=== PATIENT | female | born 1940 | race Caucasian/White ===

== ENCOUNTER 2023-02-15 07:30 | Outpatient (RCR) | payer MEDICARE, SELFPAY | END 2023-06-15 23:59 | disposition home or self-care (01) | PROVIDERS: PCP Family Medicine; Visit Provider Family Medicine | DX: N39.3 Stress incontinence (female) (male) (principal); M99.05 Segmental and somatic dysfunction of pelvic region; R29.898 Other symptoms and signs involving the musculoskeletal system; Z51.89 Encounter for other specified aftercare | CPT/HCPCS: 97110; 97140; 97162 ==

== ENCOUNTER 2023-03-19 07:01 | Outpatient (CLI) | payer MEDICARE, SELFPAY ==
--- NOTE | 2023-03-19 08:29 | W.ANESCHARGE ---
Anesthesia Charges Start Date/Time Anesthesia Start Date: 03/19/23 Anesthesia Start Time: 08:00 Stop Date/Time Anesthesia Stop Date: 03/19/23 Anesthesia Stop Time: 08:26
--- NOTE | 2023-03-19 08:35 | W.ANESCHARGE ---
Anesthesia Charges Start Date/Time Anesthesia Start Date: 03/19/23 Anesthesia Start Time: 08:00 Stop Date/Time Anesthesia Stop Date: 03/19/23 Anesthesia Stop Time: 08:26 Summary Extremes of Age - Over 70 or under 1: MDA
== END 2023-03-19 07:02 | disposition home or self-care (01) ==
PROVIDERS: PCP Family Medicine; Visit Provider Internal Medicine Gastroenterology
DX: Z12.11 Encounter for screening for malignant neoplasm of colon (principal); Z86.010 Personal history of colon polyps
CPT/HCPCS: 00811; 00812; 45378; 99100; J2704

== ENCOUNTER 2024-03-24 17:13 | Emergency (ER) | payer MEDICARE, SELFPAY ==
--- OUTSIDE RECORDS SUMMARY | 2024-03-24 17:16 | XMS_ITS | Clinical Summary ---
Author Organization [facility] Address [place], [place] [address] Care Team Providers Care Wireless Cellular Technician Name Role Phone Sukumar Fenrandez Shyam Unavailable [phone] Corina Rangel MD Primary Care Provider Allergies Active Allergy Reactions Criticality Noted Date Comments Latex Rash 04/19/2016 Patient had a rib belt/binder and got a severe rash. Unsure if latex or the elastic in the belt. Nickel Rash 10/11/2015 Medications calcium with vitamin D3 (OYSCO 500/D) tablet Take 1 tablet by mouth 3 times daily with meals. 0 0 Active alendronate (FOSAMAX) 70 mg tabletIndications :Osteoporosis, unspecified osteoporosis type, unspecified pathological fracture presence Take 1 Tablet (70 mg) by mouth once a week in the morning. Take on empty stomach with full glass of water. Do not lie down for 1 hr. 13 Tablet 3 4 Active levothyroxine (SYNTHROID) 75 mcg tabletIndications :Hypothyroidism, unspecified type Take 1 Tablet (75 mcg) by mouth once daily. 90 Tablet 3 4 Active Active Problems Problem Noted Date Diagnosed Date Stage 3a chronic kidney disease 03/06/2023 Adenomatous colon polyp 11/23/2017 Overview (03/19/2023): Colonoscopy 08/2017 polyp, repeat in 5 years Colonoscopy 02/2023 normal, no follow up needed Closed nondisplaced fracture of distal phalanx of right middle finger with routine healing 01/17/2016 Routine adult health maintenance 10/31/2013 Overview (10/31/2013): Colonoscopy 10/2013 normal, no follow up needed Osteopenia 08/25/2009 Overview (06/10/2012): 09/06 - Recheck in 2 years Unspecified hypothyroidism 07/26/2007 Encounters Date Type Department Care Team Description 02/28/2024 2:30 PM SECURITIES RESEARCH ANALYST Office Visit [facility] [address] [place] [address] Emperatriz Ayala, [facility] Visit 02/28/2024 Travel 02/25/2024 Travel 02/05/2024 8:30 AM SECURITIES RESEARCH ANALYST Ancillary Procedure [facility] [address] [place] [address] 02/05/2024 Travel 02/01/2024 Travel 01/30/2024 10:00 AM SECURITIES RESEARCH ANALYST Office Visit [facility] [address] [place] [address] Barry Mckeon DPM Consult (Bilateral foot pain) 01/30/2024 Travel 01/26/2024 Travel 12/31/2023 1:00 PM SECURITIES RESEARCH ANALYST Ancillary Procedure [facility] [address] [place] [address] 12/31/2023 Travel 12/27/2023 8:00 AM CDT Office Visit [facility] [address] [place] [address] Corina Rangel MD Medicare ANNUAL (subsequent) Visit (83 yr/); Immunization/Inject ion 12/27/2023 Travel 12/25/2023 12:20 PM CDT Orders Only [facility] [address] [place] [address] [facility], [facility] 12/25/2023 Travel 12/23/2023 Travel from Last 3 Months Immunizations Name Administration Dates Next Due Amb Influenza, Inact (High-d ose) (Flu Clinic Only) 11/13/2014 COVID-19 VACCINE SPIKEVAX (M ODERNA 50MCG/0.5ML) 12YO+ PFS 12/27/2023,12/25/2022 COVID-19 vaccine (Moderna 50mcg/0.5mL) 12YO+ BIVALENT PF, MDV 07/19/2022 COVID-19 vaccine (Pfizer-Bio NTech 30mcg/0.3mL) 12YO+ BIVALENT PF, MDV 12/22/2021 Hepatitis A (Adult) 08/25/2009,10/30/2007 Influenza A (H1N1), Inactiva edison (Age >=3 Years) 03/09/2009 Influenza, High-dose Inactivated 12/27/2015 Influenza, IIV3 (Age >=3 years) 11/14/19 14,12/25/2012,11/16/2010,2009,03/09/2009,12/23/2007,01/23/2007 Influenza, Inactivated AIIV4 (Age 65+ Years) Preserv Free 12/25/2022,12/22/2021,12/20/2020,2019 Influenza, Inactivated IIV3 (Age 65+ Years) Preserv Free 12/27/2023,12/17/2018,10/30/2017,2016 Pneumococcal Poly,23-Valent (Pneumovax) 07/09/2006 Pneumococcal conj 13-Valent (Prevnar 13) 10/09/2014 Td (Age >=7 Years) 07/02/2001 Tdap 01/05/2021,08/26/2010 Typhoid (injectable) 02/04/2015,10/30/2007 Yellow Fever 10/30/2007 Zoster (Shingrix-RZV, recombinant) 02/27/2018, Zoster (Zostavax-ZVL, live) 07/26/2007, 7 Family History Medical History Relation Name Comments Heart Disease Father dx in early 80 's, age 88 [place] Cancer-colon Mother age 75, d at 89 Cancer Sister 1 melanoma, age 4 1 Diabetes Sister 2 type II Diabetes Sister 3 type II Cancer-breast No Family History Cancer-ovarian No Family History Relation Name Status Comments Father Mother Sister 1 Sister 2 Sister 3 Social History Tobacco Use Types Packs/Day Years Used Date Smoking Tobacco: Former Cigarettes Q uit: 02/26/1998 Smokeless Tobacco: Never Tobacco Cessation:Counseling Given: Yes Alcohol Use Standard Drinks/Week Comments Yes 0.8 (1 standard drink = 0.6 oz p ure alcohol) occasional C Utilities Answer Date Recorded Do you have trouble paying f or utilities (for example, heat, electricity, water, phone)? Yes 03/06/2023 PHQ-2 Answer Date Recorded PHQ-2 TOTAL SCORE 0 12/27/2023 Social Connections Answer Date Recorded Do you often feel lonely or isolated from those around you? 0 03/06/2023 Financial Resource Strain Answer Date R ecorded Difficulty of Paying Living Expenses 3 03/06/2023 Difficulty of Paying Living Expenses Not on file 03/06/2023 Food Insecurity Answer Date Recorded Do you worry your food will run out before you are able to buy more? 1 03/06/2023 Transportation Needs Answer Date Record ed Does lack of transportation keep you from medica l appointments? 1 03/06/2023 Does lack of transportation keep you from work, meetings or getting things that you need? 1 03/06/2023 Housing Stability Answer Date Recorded What is your housing situation today? 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 Not on file Not on file Obstetrics History Para Term AB IAB SAB Ectopic Multiple Livin g Live Births 4 3 3 Date Outcome GA Total Labor Labor/2nd/3rd Weight Sex Type Anes PTL Digna A1 A5 Name Clin Para Para Para Comments all vaginal deliveries Last Filed Vital Signs Vital Sign Reading Time Taken Comments Blood Pressure 134/81 12/27/2023 7:56 AM CDT Pulse 75 01/30/2024 9:59 AM SECURITIES RESEARCH ANALYST Temperature 36.8 C (98.2 F) 05/17/2020 1:40 PM CDT Respiratory Rate 18 03/09/2022 1:02 PM SECURITIES RESEARCH ANALYST Oxygen Saturation 98% 01/30/2024 9:59 AM SECURITIES RESEARCH ANALYST Inhaled Oxygen Concentration - - Weight 48.5 kg (107 lb) 01/30/2024 9:59 AM SECURITIES RESEARCH ANALYST Height 167 cm (5' 5.75) 12/27/2023 7:56 AM CDT Body Mass Index 17.4 12/27/2023 7:56 AM CDT Plan of Treatment Upcoming Encounters Date Type Department Care Team (Late st Contact Info) Description 04/21/2024 2:30 PM SECURITIES RESEARCH ANALYST Office Visit [facility] [address] [place] [id number] Terra Lange, PhD, LP [address] [place] [address] Health Maintenance Due Date Last Done Comments RSV vaccine for adults or (1 - 1-dose 75+ series) 09/27/2015 BMI (ht and wt on same day) for age 18+ 12/26/2024 12/27/2023, 03/06/2023, 12/25/2022, Additional history exists Depression screening for age 12+ 12/26/2024 12/27/2023, 12/25/2022, 12/22/2021, Additional history exists Medicare Wellness for age 65+ 12/27/2024, 12/25/2022, 12/22/2021, Additional history exists Tetanus booster 01/05/2031 01/05/2021, 07/0 02/2010, 07/02/2001 Pneumococcal series for age 50+ Completed 5, 07/09/2006 Zoster (shingles) series for age 50+ Completed 02/27/2018, 10/30/2017, 07/26/2007, Additional history exists Tdap Completed 01/05/2021, 08/26/2010 COVID-19 vaccine series Completed 12/27/19 24, 12/25/2022, 07/19/2022, Additional history exists Influenza for age 65+ Completed 12/27/2023 , 12/25/2022, 12/22/2021, Additional history exists DEXA/DXA scan for age 65+ Completed 2023, 01/30/2022, 01/26/2020, Additional history exists Procedures Procedure Name Priority Date/Time Associated Diagnosis Comments XR DXA BONE DENSITY 2 SITES AXIAL AND 1 SITE PERIPHERAL Routine 02/05/2024 9:01 AM SECURITIES RESEARCH ANALYST Menopause XR CHEST 2 VIEWS PA AND LATERAL Routine 12/31/2023 1:05 PM SECURITIES RESEARCH ANALYST Intermittent right-sided chest pain TSH Routine 12/25/2023 12:37 PM CDT Hypothyroidism, unspecified type LIPID PANEL W REFLEX MEASURED LDL Routine 12/25/2023 12:37 PM CDT Lipid screening BASIC METABOLIC PANEL Routine 12/25/2023 12:37 PM CDT Screening for diabetes mellitus (DM) from Last 3 Months Results * (ABNORMAL) XR DXA BONE DENSITY 2 SITES AXIAL AND 1 SITE PERIPHERAL (02/05/2024 9:01 AM SECURITIES RESEARCH ANALYST) Anatomical Region Laterality Modality LUMBAR SPINE Other Impressions 02/06/2024 11:21 AM SECURITIES RESEARCH ANALYST Osteoporosis. Due to the stability of the bone density, continue present medication if indicated. RECOMMENDATIONS: The National Osteoporosis Foundation recommends pharmacologic treatment for patients with T-scores of -2.5 or less, patients with prior history of fragility fractures, or patients with 10-year probability of greater than 3% at hips or greater than 20% of suffering major osteoporotic fractures. Recommend continued optimization of calcium and vitamin D intake through dietary means and/or supplementation and regular exercise. Continue current Alendronate (Fosamax) medication treatment. Repeat DXA in two years. Consider a drug holiday from bisphosphonates if indicated. Hyacinth Mcdaniels PA-C [facility] 02/06/2024 Narrative 02/06/2024 11:21 AM SECURITIES RESEARCH ANALYST For Patients: Results are automatically released to your [employer] account once available, in compliance with federal regulations. This means that you may see your results before your provider has had a chance to review them. Please allow 2-3 business days for your provider to comment on the results. XR DXA Bone Mineral Density (BMD) EXAM LOCATION: [facility] [address] [facility] [id number] PATIENT NAME: Angela Zapata DATE OF : 1940 EXAM DATE: 02/05/2024 REQUESTING PROVIDER: Corina Rangel MD GENDER AT : female HEIGHT: 5' 5.75 (12/27/2023) WEIGHT: 107 lb (01/30/2024) MENOPAUSAL STATUS: Postmenopausal RACE/ETHNICITY: White RISK FACTORS: Family History of Osteoporosis, Family History of Hip Fracture (parental), History of Fragility Fracture (at a major site), Smoking (prior), Weight < 127 lbs., and White Race CURRENT MEDICATION FOR BONE LOSS: Alendronate (Fosamax) INDICATION: Menopause COMPARISON DATE(S): 2021 DXA scans are compared to prior studies for a patient only when the two (or more) studies were performed on the same scanner. It is not possible to compare data generated on one scanner to data from another because there are not standards in DXA equipment. This applies even if the two scanners are made by the same casino runner. PROCEDURE: Dual-energy x-ray absorptiometry performed with routine technique. Reporting is completed in the form of a T-score. The T-score represents the standard deviation from peak bone mass based on young healthy adult. A Z-score is used for diagnosis in premenopausal women, and for men under the age of 50. FINDINGS: RESULT LUMBAR SPINE L1 - L2 BMD: 0.807 g/cm2 T-Score: - 3.0 Z-Score: - 0.5 Change from prior in 2021: Decrease 11.1%. RESULTS FEMUR Right femoral neck BMD: 0.675 g/cm2 T-Score: - 2.6 Z-Score: + 0.0 Change from prior in 2021: Increase 1.7%. Right hip BMD: 0.728 g/cm2 T-Score: - 2.2 Z-Score: + 0.4 Change from prior in 2021: Increase 3.1%. RESULT FOREARM Left Forearm distal radius BMD: 0.737 g/cm2 T-Score: - 5.0 Z-Score: - 2.0 Change from prior: None WHO criteria: Normal: T-score at or above -1 SD Osteopenia: T-score between -1.1 and -2.4 SD Osteoporosis: T-score at or below -2.5 SD us Corina Rangel MD DEXA Final R esult * XR CHEST 2 VIEWS PA AND LATERAL (12/31/2023 1:05 PM SECURITIES RESEARCH ANALYST) Anatomical Region Laterality Modality CHEST, THORAX, Lung, HEART Compu edison Radiography 12/31/2023 6:09 PM SECURITIES RESEARCH ANALYST Impressions 12/31/2023 6:09 PM SECURITIES RESEARCH ANALYST 1. Bilateral pulmonary hyperinflation and lucency is noted. This is suggestive of severe, stable pulmonary emphysema. Dictated by Boubacar Albrecht MD @ 12/31/2023 6:09:34 PM Dictated by: Boubacar Albrecht MD @ 12/31/2023 18:09:39 (Electronically Signed) Narrative 12/31/2023 6:09 PM SECURITIES RESEARCH ANALYST For Patients: As a result of the Cures Act, medical imaging exams and procedure reports are released immediately into your electronic medical record. You may view this report before your referring provider. If you have questions, please contact your health care provider. INDICATION: Intermittent right-sided chest pain TECHNIQUE: Chest radiograph 2 views COMPARISON: 12/25/2022 FINDINGS: Mediastinum: The mediastinum is normal in appearance. The heart silhouette is normal in size and morphology. Lung: There is a 7 mm calcified granuloma present in the left mid lung zone without change. Bilateral pulmonary hyperinflation and lucency is noted. No sign of pleural effusion seen. No pneumothorax is identified. Bone and Soft tissue: Unremarkable for age. Procedure Note Boubacar Albrecht MD - 12/31/2023 For Patients: As a result of the Cures Act, medical imagingexams and procedure reports are released immediately into your electronicmedical record. You may view this report before your referring provider.If you have questions, please contact your health care provider. INDICATION: Intermittent right-sided chest pain TECHNIQUE: Chest radiograph 2 views COMPARISON: 12/25/2022 FINDINGS: Mediastinum: The mediastinum is normal in appearance. The heart silhouetteis normal in size and morphology. Lung: There is a 7 mm calcified granuloma present in the left mid lungzone without change. Bilateral pulmonary hyperinflation and lucency isnoted. No sign of pleural effusion seen. No pneumothorax is identified. Bone and Soft tissue: Unremarkable for age. IMPRESSION: 1. Bilateral pulmonary hyperinflation and lucency is noted. This issuggestive of severe, stable pulmonary emphysema. Dictated by Boubacar Albrecht MD @ 12/31/2023 6:09:34 PM Dictated by: Boubacar Albrecht MD @ 12/31/2023 18:09:39 (Electronically Signed) Corina Rangel MD GENERAL IMAGING Final R esult * LIPID PANEL W REFLEX MEASURED LDL (12/25/2023 12:37 PM CDT) CHOLESTEROL, TOTAL 146 <200 mg/dL [facility] HDL CHOLESTEROL 67 > OR = 50 mg/dL [facility] TRIGLYCERIDES 51 <150 mg/dL [facility] LDL-CHOLESTEROL 66 mg/dL (calc) [facility] Comment: Reference range: <100 Desirable range <100 mg/dL for primary prevention; <70 mg/dL for patients with CHD or diabetic patients with > or = 2 CHD risk factors. LDL-C is now calculated using the Herbert-Daiz calculation, which is a validated novel method providing better accuracy than the Friedewald equation in the estimation of LDL-C. Herbert SS et al. KUN. 2013;310(19): 6457-5145 (http://education.[employer]/faq/QMR860) CHOL/HDLC RATIO 2.2 <5.0 (calc) [facility] NON HDL CHOLESTEROL 79 <130 mg/dL (calc) [facility] Comment: For patients with diabetes plus 1 major ASCVD risk factor, treating to a non-HDL-C goal of <100 mg/dL (LDL-C of <70 mg/dL) is considered a therapeutic option. Blood BLOOD SPECIMEN / Unknown 12/25/2023 12:37 PM CDT 12/25/2023 12:37 PM CDT Narrative [facility] - 12/26/2023 2:42 AM CDT FASTING:NO FASTING: NO Corina Rangel MD CHEMISTRY Final R esult [facility] [address] [place] [address], [facility] [address] [place] [address] * TSH (12/25/2023 12:37 PM CDT) [facility] TSH 0.49 0.40 - 4.50 mIU/L [facility] Blood BLOOD SPECIMEN / Unknown 12/25/2023 12:37 PM CDT 12/25/2023 12:37 PM CDT Narrative [facility] - 12/26/2023 3:14 AM CDT FASTING:NO FASTING: NO Corina Rangel MD CHEMISTRY Final R esult [address] [address], [address] [address] * (ABNORMAL) BASIC METABOLIC PANEL (12/25/2023 12:37 PM CDT) [facility] GLUCOSE 92 65 - 139 mg/dL [facility] Comment: Non-fasting reference interval UREA NITROGEN (BUN) 17 7 - 25 mg/dL [facility] CREATININE 0.82 0.60 - 0.95 mg/dL [facility] EGFR 71 > OR = 60 mL/min/1. 73m2 [facility] BUN/CREATININE RATIO SEE NOTE: 6 - 22 (calc) [facility] Comment: Not Reported: BUN and Creatinine are within reference range. SODIUM 134(L) 135 - 146 mmol/L [facility] POTASSIUM 4.4 3.5 - 5.3 mmol/L [facility] CHLORIDE 101 98 - 110 mmol/L [facility] CARBON DIOXIDE 24 20 - 32 mmol/L [facility] ELECTROLYTE BALANCE 9 7 - 17 mmol/L (calc) [facility] CALCIUM 8.9 8.6 - 10.4 mg/dL [facility] Blood BLOOD SPECIMEN / Unknown 12/25/2023 12:37 PM CDT 12/25/2023 12:37 PM CDT Narrative [facility] - 12/26/2023 2:42 AM CDT FASTING:NO FASTING: NO Corina Rangel MD CHEMISTRY Final R esult [facility] [address] [place] [address], [facility] [address] [place] [address] from Last 3 Months Insurance MEDICARE PB ONLY [facility] PB ONLY Advance Directives Documents on File Type Date Recorded 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
[2024-03-24 17:19] VITALS: BP 136/84; PULSE 51; RESP 18; TEMP 36.3; O2SAT 99; BMI 17.8
--- NOTE | 2024-03-24 17:31 | ED.FALL ---
HPI - Fall General Time Seen by Provider: 17:31 Date Seen: 03/24/24 Chief Complaint: Fall/Minor Trauma Stated Complaint: Fell on the sidewalk, thinks she broke her wrist. Time Seen by Provider: 03/24/24 17:31 Source: patient, family and RN notes reviewed Mode of arrival: ambulatory Limitations: no limitations History of Present Illness HPI Narrative: Angela is a very pleasant 83-year-old female with history of osteo P knee a or processes says she is currently alendronate, hypothyroidism currently on Synthroid who comes to the emergency room for evaluation of bilateral wrist and nasal trauma after a fall. Angela notes that she is a rather fast walker and was on an unfamiliar sidewalk which must have had some sort of lip. She states her foot caught and she went forward. She stopped her fall with both of her arms but her nose did hit the sidewalk. She stated that she had a very good had on and did not sustain any head trauma. Denies any loss of consciousness or neck pain at this time. Denies any prodromal symptoms. She notes that her wrist hurt and seemed to have swelling and she is worried that she has actually broken both wrists. Previous history of right wrist and hand injury. She can move all her fingers and she has no pain in her elbows or shoulders. She denies any chest pain or vomiting. Movement greatly increases her discomfort especially in her right wrist. There is some blood on her left hand which she states is likely from her nose. Related Data Home Medications ?Medication ?Instructions ?Recorded ?Confirmed alendronate 70 mg tablet (Fosamax) 70 mg PO QWEEK 06/15/22 03/24/24 levothyroxine 75 mcg tablet mcg PO 06/15/22 01/15/23 calcium carbonate (Calcium 600) 600 mg PO QDAY 01/15/23 03/24/24 cholecalciferol (vitamin D3) 10 10 mcg PO QDAY 01/15/23 03/24/24 mcg (400 unit) capsule Allergies Allergy/AdvReac Type Severity Reaction Status Date / Time Latex, Natural Rubber Allergy Unknown Verified 03/24/24 17:24 Sulfa (Sulfonamide Allergy Unknown Verified 03/24/24 17:24 Antibiotics) Review of Systems Status of ROS: Reports: 10 or more systems reviewed and unremarkable except as noted in History and below Const: Denies: fever or chills Eyes: Denies: change in vision or blurry vision ENMT: Denies: throat pain or neck pain Cardio: Denies: chest pain or shortness of breath with exertion Resp: Denies: shortness of breath or cough GI: Denies: abdominal pain, nausea or vomiting Musculo: Reports: extremity swelling; Denies: back pain, neck pain or extremity pain Integ/Breast: Denies: rash Neuro: Denies: headache PFSH PFSH Social History Smoking Status: Never smoker How often do you have a drink containing alcohol: never AUDIT-C Alcohol total score: 0 Non-prescribed substance use: denies use Exam Narrative: Exam Narrative: Angela is alert and oriented. Very pleasant woman in no acute distress. EOM is full with pupils equal reactive. Head is atraumatic with the exception of the nose. Neck is supple. No midline cervical tenderness and range of motion is full. Examination of the nose shows no evidence of a septal hematoma but does show some dried blood at the left nostril. She has swelling of the mid and distal aspect of the nose. No obvious lacerations. Heart with regular rate and rhythm and lungs are clear bilaterally. Abdomen soft. Pelvis is stable. She has some mild tenderness noted over the left knee but she is able to move her lower extremities without difficulty. Examination however room wrist shows swelling bilaterally and I do sense a deformity especially at the distal aspect of the radius. On the right wrist swelling seems to be actually in the carpal elements distal to the radial bone. She is able to move fingers on both hands without difficulty. On the left arm she has tenderness over the mid aspect of the forearm. No pain with palpation over the elbows or shoulders. Const: Vital Signs, click to edit/add: Vital Signs - 24 hr 03/24/24 17:19 Temperature 97.4 F L Pulse Rate [Pulse Oximeter] 51 L Respiratory Rate 18 Blood Pressure [Ri ght Upper Arm] 136/84 Pulse Oximetry 99 Oxygen Delivery Me thod Room Air Documenting provider has reviewed patient's vital signs: yes Course Course ED Course: At this time will order x-rays of left wrist and forearm, right wrist and CT of the nose. Have offered pain medication to Angela and discussed oral versus IM and narcotic verses nonnarcotic. At this time we will try morphine 8 mg IM. Also discussed with Angela and her significant other challenges of being cared for at home if she has splints on both of her wrists. Reevaluation(s) Reevaluation #1: Patient noted to be improved after IM morphine. Splints were placed on patient risk. Wrist fracture is nondisplaced and not angulated or comminuted. Patient had a volar splint placed with improvement of her discomfort. Post splint application good CMS. Right wrist was splinted with a dorsal volar splint given the nature of the fracture which is comminuted with dorsal angulation. CMS intact after splint placement. Consultations Consultation #1: I had the pleasure of speaking with ortho PA Ginna in regards to this patient. She does not feel we need to do a reduction on the right wrist tonight. Recommend follow-up in the clinic. Vital Signs Vital signs: Initial Vital Signs Temperature 97.4 F L 03/24/24 17:19 Temperature Source Temporal Artery Scan 03/24/24 17:19 Pulse Rate 51 L 03/24/24 17:19 Respiratory Rate 18 03/24/24 17:19 Blood Pressure 136/84 03/24/24 17:19 Blood Pressure Mean 101 03/24/24 17:19 Blood Pressure Position Sitting 03/24/24 17:19 Pulse Oximetry 99 03/24/24 17:19 Oxygen Delivery Method Room Air 03/24/24 17:19 Vital Signs Temperature 97.4 F L 03/24/24 17:19 Pulse Rate 51 L 03/24/24 17:19 Respiratory Rate 18 03/24/24 17:19 Blood Pressure 136/84 03/24/24 17:19 Pulse Oximetry 99 03/24/24 17:19 Oxygen Delivery Method Room Air 03/24/24 17:19 Temperature 97.4 F L 03/24/24 17:19 Pulse Rate 51 L 03/24/24 17:19 Respiratory Rate 18 03/24/24 17:19 Blood Pressure 136/84 03/24/24 17:19 Pulse Oximetry 99 03/24/24 17:19 Oxygen Delivery Method Room Air 03/24/24 17:19 Medications Administered Medications: Discontinued Medications Generic Name Dose Route Start Last Admin Trade Name Freq PRN Reason Stop Dose Admin Morphine Sulfate 8 mg 03/24/24 17:45 03/24/24 18:14 Morphine 10 Mg/Ml Inj IM 03/24/24 17:46 8 mg ONCE ONE Administration MDM - Fall MDM Narrative Medical decision making narrative: 1. Bilateral wrist fractures -left wrist likely will only require splint or possibly short-arm cast. Right wrist fracture is a possibly a surgical candidate. Did speak with Orthopedics PA does not feel I need to do a reduction tonight. Patient was placed in bilateral splints and will follow up with Orthopedic and fracture Clinic in the next few days. Patient received IM morphine in the ED and was improved. Will send her home with Vicodin, 5/325 1-2 tabs p.o. q.4-6 hours p.r.n. 12. Tablets with no refills. She does not have any ibuprofen with her at home tonight but would recommend ibuprofen 400 mg t.i.d.. Although I do not think this will relieve her discomfort it may allow her to take less Vicodin less often overall. We spoke of he is the importance of a stool softener if she is at risk for constipation. 2. Nasal trauma-recheck at the end of exam continues to show no evidence of a septal hematoma. Reassurance at this time. Tetanus is up-to-date. 3. Disposition -home. Taty Siu's feels that he will be able to care for her. Return as needed for worsening symptoms and as needed. Medical Records Attestation: I reviewed the patient's medical records. Imaging Data Left wrist x-ray: Attestation: I have reviewed the pertinent imaging results. My impression: Fracture of the distal radius with out any evidence of displacement. Radiologist's impression: Bone: Focal buckling of the cortex along the radial styloid is noted with adjacent soft tissue swelling. Moderate diffuse osteopenia is present. Joint: The radiocarpal, carpal, and carpometacarpal joints are unremarkable in appearance. Soft tissue: Unremarkable otherwise. No radiopaque foreign bodies are seen. IMPRESSION: 1. Focal buckling of the cortex along the radial styloid is noted with adjacent soft tissue swelling. Correlation with physical exam for focal tenderness in this region is recommended to exclude an acute fracture. Left forearm x-ray: Attestation: I have reviewed the pertinent imaging results. My impression: No fracture Radiologist's impression: No fracture Right wrist x-ray: Attestation: I have reviewed the pertinent imaging results. My impression: Obvious fracture of the distal radius. Comminuted. Radiologist's impression: Bone: There is a comminuted intra-articular fracture of the distal radius present with dorsal angulation of the articular surface by 20 degrees. Positive ulnar variance of 6 mm is noted likely post traumatic in etiology. Moderate diffuse osteopenia is present. Joint: The radiocarpal, carpal, and carpometacarpal joints are unremarkable in appearance. Soft tissue: Overlying fabric artifacts moderately degrade the evaluation of the soft tissues and osseous structures. No radiopaque foreign bodies are seen. IMPRESSION: 1. There is a comminuted intra-articular fracture of the distal radius present with dorsal angulation of the articular surface by [address]: Attestation: I have reviewed the pertinent imaging results. My impression: I note a deviated nasal septum. Questionable fracture. Sinuses appear to be intact. Radiologist's impression: Streak artifact from the dental hardware limits evaluation of adjacent structures. The orbital franklin are intact. The globes are symmetric in size and normal in contour. There is no retrobulbar hematoma. Status post lens removal bilaterally. Acute mildly displaced fracture of the left nasal bone with overlying soft tissue edema. The zygomatic arches are intact. The franklin of the maxillary sinuses are intact. The paranasal sinuses and mastoid air cells are clear. The pterygoid plates are intact. The nasopharyngeal contours are unremarkable. The mandible and temporomandibular joints are intact. IMPRESSION: Acute mildly displaced left nasal bone fracture. Discharge Plan Discharge Clinical Impression: Closed fracture of both wrists Qualifiers: Encounter type: initial encounter Qualified Code(s): S62.101A - Fracture of unspecified carpal bone, right wrist, initial encounter for closed fracture Closed fracture nasal bone Qualifiers: Encounter type: initial encounter Qualified Code(s): S02.2XXA - Fracture of nasal bones, initial encounter for closed fracture Patient Disposition: Home, Self-Care Condition: Improved Additional Instructions: Follow-up with orthopedics. Recommend calling them tomorrow morning and letting them know that 1 of your wrist fractures may need surgical repair. The phone number is [phone] . Try to keep wrist elevated at level of heart or above. Return to the ER for worsening symptoms. For pain, recommend ibuprofen 400 mg every 8 hours as needed. For pain not relieved by ibuprofen you may use Vicodin. This is a combination medication of a narcotic called hydrocodone and Tylenol. Please to not take any additional Tylenol when using this medicine. In addition, recommend against the use of alcohol driving or please other sedatives such as sleep medication. Also this tends to cause constipation so recommend starting a stool softener Return as needed. Activity Level: No Restrictions Discharge Diet: Regular Prescriptions: No Action levothyroxine 75 mcg tablet PO alendronate [Fosamax] 70 mg tablet 70 mg PO QWEEK calcium carbonate [Calcium 600] 600 mg calcium (1,500 mg) tablet 600 mg PO QDAY cholecalciferol (vitamin D3) 10 mcg (400 unit) capsule 10 mcg PO QDAY Follow Up/Referrals: Corina Rangel MD [Primary Care Provider] - Stand Alone Forms: [facility] Info Instructions
--- NOTE | 2024-03-24 17:45 | CRLHL7_ITS ---
For Patients: As a result of the Century Cures Act, medical imaging exams and procedure reports are released immediately into your electronic medical record. You may view this report before your referring provider. If you have questions, please contact your health care provider. INDICATION: Fall. Wrist Pain, injury today, Fall with deformity TECHNIQUE: Wrist radiograph 3 views left COMPARISON: None FINDINGS: Bone: Focal buckling of the cortex along the radial styloid is noted with adjacent soft tissue swelling. Moderate diffuse osteopenia is present. Joint: The radiocarpal, carpal, and carpometacarpal joints are unremarkable in appearance. Soft tissue: Unremarkable otherwise. No radiopaque foreign bodies are seen. IMPRESSION: 1. Focal buckling of the cortex along the radial styloid is noted with adjacent soft tissue swelling. Correlation with physical exam for focal tenderness in this region is recommended to exclude an acute fracture. Dictated by Boubacar Albrecht MD @ 03/24/2024 6:37:40 PM Dictated by: Boubacar Albrecht MD @ 03/24/2024 18:37:42 (Electronically Signed)
--- NOTE | 2024-03-24 17:45 | CRLHL7_ITS ---
For Patients: As a result of the Century Cures Act, medical imaging exams and procedure reports are released immediately into your electronic medical record. You may view this report before your referring provider. If you have questions, please contact your health care provider. TECHNIQUE: Multiplanar CT examination of the facial bones was performed without the use of intravenous contrast. INDICATION: Trauma. COMPARISON: None. FINDINGS: Streak artifact from the dental hardware limits evaluation of adjacent structures. The orbital franklin are intact. The globes are symmetric in size and normal in contour. There is no retrobulbar hematoma. Status post lens removal bilaterally. Acute mildly displaced fracture of the left nasal bone with overlying soft tissue edema. The zygomatic arches are intact. The franklin of the maxillary sinuses are intact. The paranasal sinuses and mastoid air cells are clear. The pterygoid plates are intact. The nasopharyngeal contours are unremarkable. The mandible and temporomandibular joints are intact. IMPRESSION: Acute mildly displaced left nasal bone fracture. Please note that all CT scans at this facility use dose modulation, iterative reconstruction, and/or weight-based dosing when appropriate to reduce radiation dose to as low as reasonably achievable. Dictated by Dustin Franco MD @ 03/24/2024 6:35:09 PM (Electronically Signed)
--- NOTE | 2024-03-24 17:45 | CRLHL7_ITS ---
For Patients: As a result of the Century Cures Act, medical imaging exams and procedure reports are released immediately into your electronic medical record. You may view this report before your referring provider. If you have questions, please contact your health care provider. INDICATION: Fall. Forearm Pain, injury today TECHNIQUE: Forearm radiograph 2 views left COMPARISON: None FINDINGS: Bone: There is a comminuted fracture of the distal radius present and described on separate report. Moderate diffuse osteopenia is present. Joint: The visualized radiocarpal and elbow joints are unremarkable, but the elbow joint is not profiled. If there is pain or tenderness in this region, dedicated views of the elbow are recommended. No significant elbow effusion is seen. Soft tissue: Overlying fabric artifacts severely degrade the evaluation of the soft tissues and osseous structures. No radiopaque foreign bodies are seen. IMPRESSION: 1. There is a comminuted fracture of the distal radius present and described on separate report. Dictated by Boubacar Albrecht MD @ 03/24/2024 6:35:08 PM Prelim Report By Dr. Boubacar Albrecht @ 03/24/2024 6:35:09 PM ADDENDUM The findings and impressions should read There is a suspected fracture of the distal radius present and described on separate report. Dictated by: MD @ 03/24/2024 19:02:00 (Electronically Signed)
--- NOTE | 2024-03-24 17:45 | CRLHL7_ITS ---
For Patients: As a result of the Century Cures Act, medical imaging exams and procedure reports are released immediately into your electronic medical record. You may view this report before your referring provider. If you have questions, please contact your health care provider. INDICATION: Fall. Wrist Pain, injury today TECHNIQUE: Wrist radiograph 3 views right COMPARISON: None FINDINGS: Bone: There is a comminuted intra-articular fracture of the distal radius present with dorsal angulation of the articular surface by 20 degrees. Positive ulnar variance of 6 mm is noted likely post traumatic in etiology. Moderate diffuse osteopenia is present. Joint: The radiocarpal, carpal, and carpometacarpal joints are unremarkable in appearance. Soft tissue: Overlying fabric artifacts moderately degrade the evaluation of the soft tissues and osseous structures. No radiopaque foreign bodies are seen. IMPRESSION: 1. There is a comminuted intra-articular fracture of the distal radius present with dorsal angulation of the articular surface by 20 degrees. Dictated by Boubacar Albrecht MD @ 03/24/2024 6:36:45 PM Dictated by: Boubacar Albrecht MD @ 03/24/2024 18:36:46 (Electronically Signed)
--- OUTSIDE RECORDS SUMMARY | 2024-03-24 18:07 | XMS_ITS | Clinical Summary ---
Author Organization [employer] [facility] Address [place], [place] [address] Care Team Providers Care Carton Waxing Machine Operator Name Role Phone Sukumar Fernandez Shyam Unavailable [phone] Corina Rangel MD Primary Care Provider [...] Department Care Team Description 02/28/2024 2:30 PM HOUSEHOLD COORDINATOR Office Visit [facility] [address] [place] [address] Emperatriz Ayala, [facility] Visit 02/28/2024 Travel 02/25/2024 Travel 02/05/2024 8:30 AM HOUSEHOLD COORDINATOR Ancillary Procedure [facility] [address] [place] [address] 02/05/2024 Travel 02/01/2024 Travel 01/30/2024 10:00 AM HOUSEHOLD COORDINATOR Office Visit [facility] [address] [place] [address] Barry Mckeon DPM Consult (Bilateral foot pain) 01/30/2024 Travel 01/26/2024 Travel 12/31/2023 1:00 PM HOUSEHOLD COORDINATOR Ancillary Procedure [facility] [address] [place] [address] 12/31/2023 Travel 12/27/2023 8:00 AM CDT Office Visit [facility] [address] [place] [address] Corina Rangel MD Medicare ANNUAL (subsequent) Visit (83 yr/); Immunization/Inject ion 12/27/2023 Travel 12/25/2023 12:20 PM CDT Orders Only [facility] [address] [place] [address] Lab, [facility] 12/25/2023 Travel 12/23/2023 Travel [...] dx in early 80 's, age 88 [place] Cancer-colon Mother age 75, d at 89 [...] on file Legal Sex Female 7:10 AM HOUSEHOLD COORDINATOR Gender Identity Not on file Sexual Orientation [...] AM CDT Pulse 75 01/30/2024 9:59 AM HOUSEHOLD COORDINATOR Temperature 36.8 C (98.2 F) 05/17/2020 1:40 PM CDT Respiratory Rate 18 03/09/2022 1:02 PM HOUSEHOLD COORDINATOR Oxygen Saturation 98% 01/30/2024 9:59 AM HOUSEHOLD COORDINATOR Inhaled Oxygen Concentration - - Weight 48.5 kg (107 lb) 01/30/2024 9:59 AM HOUSEHOLD COORDINATOR Height 167 cm (5' 5.75) 12/27/2023 7:56 AM CDT Body Mass Index 17.4 12/27/2023 7:56 AM CDT Plan of Treatment Upcoming Encounters Date Type Department Care Team (Late st Contact Info) Description 04/21/2024 2:30 PM HOUSEHOLD COORDINATOR Office Visit [facility] [address] [place] [id number] Terra Lange, PhD, LP [address] [place] [address] Health Maintenance Due Date Last Done Comments [...] 1 SITE PERIPHERAL Routine 02/05/2024 9:01 AM HOUSEHOLD COORDINATOR Menopause XR CHEST 2 VIEWS PA AND LATERAL Routine 12/31/2023 1:05 PM HOUSEHOLD COORDINATOR Intermittent right-sided chest pain TSH Routine 12/25/2023 12:37 PM CDT Hypothyroidism, unspecified type LIPID PANEL W REFLEX MEASURED LDL Routine 12/25/2023 12:37 PM CDT Lipid screening BASIC METABOLIC PANEL Routine 12/25/2023 12:37 PM CDT Screening for diabetes mellitus (DM) from Last 3 Months Results * (ABNORMAL) XR DXA BONE DENSITY 2 SITES AXIAL AND 1 SITE PERIPHERAL (02/05/2024 9:01 AM HOUSEHOLD COORDINATOR) Anatomical Region Laterality Modality LUMBAR SPINE Other Impressions 02/06/2024 11:21 AM HOUSEHOLD COORDINATOR Osteoporosis. Due to the stability of the [...] from bisphosphonates if indicated. Hyacinth Mcdaniels PA-C [facility] 02/06/2024 Narrative 02/06/2024 11:21 AM HOUSEHOLD COORDINATOR For Patients: Results are automatically released to your [employer] account once available, in compliance with federal regulations. This means that you may see your results before your provider has had a chance to review them. Please allow 2-3 business days for your provider to comment on the results. XR DXA Bone Mineral Density (BMD) EXAM LOCATION: [facility] [address] [facility] [address] PATIENT NAME: Angela Zapata DATE OF : [...] two scanners are made by the same cook chef. PROCEDURE: Dual-energy x-ray absorptiometry performed with routine [...] VIEWS PA AND LATERAL (12/31/2023 1:05 PM HOUSEHOLD COORDINATOR) Anatomical Region Laterality Modality CHEST, THORAX, Lung, HEART Compu edison Radiography 12/31/2023 6:09 PM HOUSEHOLD COORDINATOR Impressions 12/31/2023 6:09 PM HOUSEHOLD COORDINATOR 1. Bilateral pulmonary hyperinflation and lucency is noted. This is suggestive of severe, stable pulmonary emphysema. Dictated by Boubacar Albrecht MD @ 12/31/2023 6:09:34 PM Dictated by: Boubacar Albrecht MD @ 12/31/2023 18:09:39 (Electronically Signed) Narrative 12/31/2023 6:09 PM HOUSEHOLD COORDINATOR For Patients: As a result of the [...] factors. LDL-C is now calculated using the Herbert-Diaz calculation, which is a validated novel method providing better accuracy than the Friedewald equation in the estimation of LDL-C. Herbert SS et al. KUN. 2013;310(19): 8635-0020 (http://education.Guguchu/faq/BSW078) CHOL/HDLC RATIO 2.2 <5.0 (calc) [facility] [...] Rangel MD CHEMISTRY Final R esult [facility] [employer] [id number] [place] [address], [facility] [address] [place] [address] * TSH (12/25/2023 12:37 PM CDT) [facility] TSH 0.49 0.40 - 4.50 mIU/L [facility] Blood BLOOD SPECIMEN / Unknown 12/25/2023 12:37 PM CDT 12/25/2023 12:37 PM CDT Narrative [facility] - 12/26/2023 3:14 AM CDT FASTING:NO FASTING: NO Corina Rangel MD CHEMISTRY Final R esult [address] [address], [address] [address] * (ABNORMAL) BASIC METABOLIC PANEL (12/25/2023 12:37 PM CDT) [facility] GLUCOSE 92 65 - 139 mg/dL [facility] [...] MD CHEMISTRY Final R esult [facility] [address] [place] [address], [facility] [address] [place] [address] from Last 3 Months Insurance MEDICARE PB ONLY [facility] PB ONLY Advance Directives Documents on File Type Date Recorded Patient Supervisor Inspecting Expl anation Healthcare Directive 10/19/2016 2:28 PM [facility], 07/20/2011 Care Teams Carton Waxing Machine Operator Relationship Specialty Start Date End Date Corina Rangel MD [address] [place] [address] PCP - General Family Practice 06/19/12 Sukumar Fernandez [address] [place] [id number] Ophthalmology Program Evaluator 09/01/11
--- OUTSIDE RECORDS SUMMARY | 2024-03-24 18:07 | XMS_ITS | Continuity of Care Document ---
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 Name Role Phone Sonya Singh MD Unavailable Unavailable Allergies, Adverse Reactions, Alerts Substance Reaction Status Criticality No Known allergies Medications Medication Instructions Dosage Effective Dates (start - stop) Status Comments multivitamin Tab Take one tablet by mouth daily - Active Vitamin C 500 mg Tab Take two tablets by mouth daily - Active CALCIUM + D 600 MG-200TABLET Three times a day - Active B-Complex Tab Take one tablet by mouth daily - Active Aspirin Low Dose 81 mg Tab, Delayed Release Take 1 tablet by mouth daily - Active estradiol 0.5 mg Tab Take one tablet by mouth daily - Active Prometrium 100 mg Cap every day - Active Fosamax 70 mg Tab Take 1 tablet by zofia th weekly - Active Procedures Procedure Date Colonoscopy Flex; Dx (sep Pro) 07 Advance Directives Directive Yes / No Effective Date File Name No Information Encounters Encounter Description Practice Location Reason(s) For Visit Diagnoses Date Provider Providers Copied on Encounter [facility], [address] [address], [place], [place], [id number], [place] tel:[phone] Wili [facility] Family Hx GI Tract CancerColon Cancer Screening Francisco Hassan. [address] [facility], [facility] [address], [place], [place], [id number], [place]. tel:[phone] Referring Provider: Analisa Martinez MD L, [address] [place], [address]. tel:[phone] Family History Family Member Type Diagnosis Age At Onset No Information Payers Payer name Insurance type Covered republican ID Authorabdoulaye coello(s) [employer] [facility] Plan [id number] Social History Type Description Quantity Date Captured Comments Sex Female Smoking Status No Information Chief Complaint And Reason For Visit No Information Reason For Referral Reason For Referral No Information History Of Present Illness Encounter Date Complaint History Of Prese nt Illness No Information Functional Status Date Functional Assessmen t No Information Instructions Date Instruction Additional Infor mation No Information Assessments Type Assessment Date No Information Patient Care Teams Name Effective Dates (start - stop) Status Members No Information
[2024-03-24] MEDS: MORPHINE 10 MG/ML inj 8 MG IM (18:14)
[2024-03-24 19:00] VITALS: BP 157/90; PULSE 68; RESP 18; TEMP 36.6; O2SAT 95
== END 2024-03-24 20:05 | disposition home or self-care (01) ==
PROVIDERS: Emergency Provider Family Medicine; PCP Family Medicine
DX: S52.571A Other intraarticular fracture of lower end of right radius, initial encounter for closed fracture (principal); S52.502A Unspecified fracture of the lower end of left radius, initial encounter for closed fracture; S02.2XXA Fracture of nasal bones, initial encounter for closed fracture; W01.0XXA Fall on same level from slipping, tripping and stumbling without subsequent striking against object, initial encounter
CPT/HCPCS: 29125; 70486; 73090; 73110; 96372; 99284; J2270

== ENCOUNTER 2024-03-25 09:49 | Outpatient (CLI) | payer MEDICARE, SELFPAY | END 2024-03-25 09:50 | disposition home or self-care (01) | LOC: AMB 03-30 10:18 | PROVIDERS: PCP Family Medicine; Visit Provider Emergency Medicine | DX: R51.9 Headache, unspecified (principal); R11.10 Vomiting, unspecified | CPT/HCPCS: A0425; A0427 ==

== ENCOUNTER 2024-03-25 10:26 | Inpatient (IN) | payer MEDICARE, SELFPAY ==
[2024-03-25 10:29] VITALS: BP 166/99; PULSE 75; RESP 20; TEMP 37.2; O2SAT 95; BMI 17.4
--- NOTE | 2024-03-25 10:41 | ED.GENADULT ---
HPI - General Adult General Date Seen: 03/25/24 Chief complaint: Headache/Migraine Stated complaint: Fall, headache Time Seen by Provider: 03/25/24 10:41 History of Present Illness HPI narrative: 83-year-old female presenting to the ER at this morning with concern for headache, nausea and vomiting, dizziness. She had a fall last night and had bilateral wrist fractures. She was treated here in the ER was able to discharge home and given a prescription for oxycodone. She took oxycodone about 930 this morning and did not have any food with that. Per medical record from last night she saw Dr. Melo. Past medical history includes osteopenia, hypothyroidism. She did have wrist injuries and nasal trauma after a fall. XR Right wrist IMPRESSION: 1. There is a comminuted intra-articular fracture of the distal radius present with dorsal angulation of the articular surface by 20 degrees. XR left wrist IMPRESSION: 1. There is a comminuted intra-articular fracture of the distal radius present with dorsal angulation of the articular surface by [address] facial bones IMPRESSION: Acute mildly displaced left nasal bone fracture. She was able to discharge home last night. She received pain meds for home and a prescription for what she thinks is hydrocodone (not oxycodone). She had taken hydrocodone last night in the ER. She had slept pretty well but was up a couple times got the bathroom last night. Her through of you go was with her 0 to go to the bathroom last night and noted that she was a bit unsteady and tipsy. This morning when she woke up she was having wrist pain and headache so took another pain killer. Since then she has been increasingly nauseous, feeling very dizzy, and says that she was quite unsteady. She was too unsteady to walk so came back here to the ER. She suspects that the nausea and unsteadiness or side effects of her pain killer. She regrets not accepting a prescription for nausea medicine last night. She already had an IV established and received 4 mg of Zofran is feeling better but does not have complete resolution of nausea yet. She does have wrist pain but it is fairly mild. She notes that her right hand fingers are little bit swollen this morning. No numbness or tingling in her fingers. No other painful injuries. No neck pain or back pain. No pain in her hips or lower extremities. Her headache is about a 3/10 and is located above her left eye where there is evolving bruise. Vision is normal. She is alert and oriented Related Data Home Medications ?Medication ?Instructions ?Recorded ?Confirmed levothyroxine 75 mcg tablet 75 mcg PO DAILY 06/15/22 03/25/24 calcium 600 mg (as 1 tab PO BID 03/25/24 03/25/24 carbonate)-vitamin D3 10 mcg (400 unit) tablet (Calcium 600 + D(3)) Allergies Allergy/AdvReac Type Severity Reaction Status Date / Time Latex, Natural Rubber Allergy Unknown Verified 03/24/24 17:24 Sulfa (Sulfonamide Allergy Unknown Verified 03/24/24 17:24 Antibiotics) nickel Allergy Verified 03/25/24 15:[address] [facility] Medical History (Updated 03/25/24 @ 16:57 by Balwinder Vargas MD) Thyroid nodule ?E04.1 - Nontoxic single thyroid nodule (ICD-10) Rectal bleeding ?K62.5 - Hemorrhage of anus and rectum (ICD-10) Stage 3a chronic kidney disease ?N18.31 - Chronic kidney disease, stage 3a (ICD-10) Closed nondisplaced fracture of distal phalanx of right middle finger ?S62.662A - Nondisplaced fracture of distal phalanx of right middle finger, initial encounter for closed fracture (ICD-10) Osteopenia ?M85.80 - Other specified disorders of bone density and structure, unspecified site (ICD-10) Adenomatous colon polyp ?D12.6 - Benign neoplasm of colon, unspecified (ICD-10) Osteoporosis ?M81.0 - Age-related osteoporosis without current pathological fracture (ICD-10) Hypothyroidism ?E03.9 - Hypothyroidism, unspecified (ICD-10) Hip fracture, left ?S72.002A - Fracture of unspecified part of neck of left femur, initial encounter for closed fracture (ICD-10) Surgical History History of hip surgery (04/09/18) ?Z98.890 - Other specified postprocedural states (ICD-10) H/O hernia repair ?Z98.890 - Other specified postprocedural states (ICD-10) ?Z87.19 - Personal history of other diseases of the digestive system (ICD-10) Social History What is your current living situation?: I presently have a place to live Problems where you live: no known problems Problems where you live details: NA In the past 12 months, utilities in danger of being shut off: no In past 12 months, lack of transportation kept you from medical appts, meetings, work, or getting things needed for daily living: no In the past 12 mos, have been you worried that your food would run out before you had money to buy more?: never true In the past 12 mos, the food you bought just didn't last and you didn't have money to buy more?: never true Highest level of school completed/degree received: Master's degree Smoking Status: Never smoker Do you use any of these nicotine containing products: None How often do you have a drink containing alcohol: 2-4 times a month Alcohol type: beer How many standard drinks containing alcohol do you have on a typical day: 1 or 2 How often do you have six or more drinks on one occasion: Never AUDIT-C Alcohol total score: 2 Non-prescribed substance use: denies use Caffeine: Yes (coffee) How often does anyone, including family, friends and others, physically hurt you: unable to answer How often does anyone, including family, friends and others, insult or talk down to you: unable to answer How often does anyone, including family, friends and others, threaten you with harm: unable to answer How often does anyone, including family, friends and others, scream or curse at you: unable to answer service: No Exam Narrative: Exam Narrative: Constitutional: Appears well-developed and well-nourished. Alert. Conversant. Non toxic. HENT: Head: Nasal ecchymosis and scrape on her left side of her nose. Also left forehead ecchymosis. She does have tenderness on left forehead and frontal bone. No depressed skull fracture, Raccoon Eyes, Dawson's sign, or hemotympanum. Face normal. TMs normal. Nose: Nose normal. Mouth/Throat: Oral mucosa is clear and moist. no trismus. Pharynx normal. Tonsils symmetric. No tonsillar enlargement, erythema, or exudate. Eyes: Conjunctivae normal. EOM normal. Pupils equal, round, and reactive to light. No scleral icterus. Neck: Normal range of motion. Neck supple. No tracheal deviation present. Cardiovascular: Normal rate, regular rhythm. No gallop. No friction rub. No murmur heard. Normal capillary refill Pulmonary/Chest: Effort normal. No stridor. No respiratory distress. No wheezes. No rales. No rhonchi . No tenderness. Abdominal: Soft. No distension. No mass. No tenderness. No rebound. No guarding. Musculoskeletal: She is wearing forearm splints to protect both of her wrists. Humerus and shoulders are nontender. She does have intact ulnar, median, radial nerve sensory function bilaterally. Normal cap refill in both hands in the finger tips. Intact finger wiggling. Pelvis is stable and hips nontender RLE: Normal range of motion. No edema. No tenderness. No deformity LLE: Normal range of motion. No edema. No tenderness. No deformity Neurological: Alert and oriented to person, place, and time. Normal strength. CN II-VII intact. No sensory deficit. GCS eye subscore is 4. GCS verbal subscore is 5. GCS motor subscore is 6. Normal coordination . Gait not assessed because she is feeling a bit too dizzy, still. Skin: Skin is warm and dry. No rash noted. No pallor. Normal capillary refill. Psychiatric: Normal mood. Normal affect. Const: Vital Signs, click to edit/add: Vital Signs - 24 hr 03/25/24 10:29 03/25/24 14:05 Temperature 98.9 F Pulse Rate [Right Pulse Oximeter] 75 73 Respiratory Rate 20 18 Blood Pressure [Ri ght Upper Arm] 166/99 H 133/77 Pulse Oximetry 95 97 Oxygen Delivery Me thod Room Air Room Air Course Vital Signs Vital signs: Initial Vital Signs Temperature 98.9 F 03/25/24 10:29 Temperature Source Temporal Artery Scan 03/25/24 10:29 Pulse Rate 75 03/25/24 10:29 Pulse Rhythm Regular 03/25/24 10:29 Respiratory Rate 20 03/25/24 10:29 Blood Pressure 166/99 H 03/25/24 10:29 Blood Pressure Mean 121 H 03/25/24 10:29 Blood Pressure Position Supine 03/25/24 10:29 Pulse Oximetry 95 01/28/25 10:29 Oxygen Delivery Method Room Air 03/25/24 10:29 Vital Signs Temperature 98.9 F 03/25/24 10:29 Pulse Rate 75 03/25/24 10:29 Respiratory Rate 20 03/25/24 10:29 Blood Pressure 166/99 H 03/25/24 10:29 Pulse Oximetry 95 03/25/24 10:29 Oxygen Delivery Method Room Air 03/25/24 10:29 Temperature 98.2 F 03/25/24 19:00 Pulse Rate 76 03/25/24 19:00 Respiratory Rate 18 03/25/24 19:00 Blood Pressure 163/92 H 03/25/24 19:00 Pulse Oximetry 97 03/25/24 19:00 Oxygen Delivery Method Room Air 03/25/24 19:00 Medications Administered Medications: Generic Name Dose Route Start Last Admin Trade Name Freq PRN Reason Stop Dose Admin Acetaminophen 1,000 mg 03/25/24 17:00 03/25/24 18:02 Acetaminophen 500 Mg Tablet PO 1,000 mg Q8H SHIVA Administration Sodium Chloride 1,000 mls @ 125 mls/hr 03/25/24 16:31 03/25/24 17:13 0.9 % Sodium Chloride 1000 Ml IV 03/26/24 00:30 125 mls/hr .Q8H SHIVA Administration Ibuprofen 400 mg 03/25/24 18:00 03/25/24 19:34 Ibuprofen 400 Mg Tablet PO 03/27/24 23:59 Not Given TIDWM SHIVA Ondansetron HCl 4 mg 03/25/24 16:31 03/25/24 17:13 Ondansetron 2 Mg/Ml Inj IVP 4 mg Q4H PRN Administration Nausea Scopolamine 1 patch 03/25/24 17:00 03/25/24 18:40 Scopolamine 1 Mg/3 Day Patch TRANSDERMA 1 patch Q72H SHIVA Administration Discontinued Medications Generic Name Dose Route Start Last Admin Trade Name Freq PRN Reason Stop Dose Admin Sodium Chloride 1,000 mls @ 1,000 mls/hr 03/25/24 12:30 03/25/24 13:04 0.9 % Sodium Chloride 1000 Ml IV 03/25/24 13:29 Infused .Q1H SHIVA Infusion Potassium Chloride 10 meq in 100 mls @ 100 mls/hr 03/25/24 17:00 03/25/24 18:01 Potassium Chloride IVPB 03/25/24 19:29 100 mls/hr Q90M SHIVA Administration Ketorolac Tromethamine 15 mg 03/25/24 11:12 03/25/24 11:32 Ketorolac 15 Mg/Ml Inj IVP 03/25/24 11:13 15 mg ONCE ONE Administration Ondansetron HCl 4 mg 03/25/24 11:12 03/25/24 11:32 Ondansetron 2 Mg/Ml Inj IVP 03/25/24 11:13 4 mg ONCE ONE Administration Medical Decision Making MDM Narrative Medical decision making narrative: Pleasant 83-year-old female returning to the ER today. She was seen in the ER last night after a mechanical trip and fall with a nondisplaced nasal fracture, facial bruising, and bilateral wrist fractures. She is here predominantly because of severe nausea vomiting, unsteadiness. Differential for these symptoms would include undiagnosed traumatic brain injury. I see that she had a CT facial bones last night but not a CT head. We did do a head CT which is fortunately negative. Discussed with the patient her family that symptoms could be related could caution. However I strongly suspect that her symptoms are largely being driven by her opiate pain killers. Laboratory workup shows reassuring CBC, BMP. She is neurologically intact in both hands and fingertips. No evidence for compartment syndrome in her arm. No evidence for other injury such as spinal fracture, pelvic fracture or lower extremity fracture. We attempted to manage her nausea and dizziness here in the ER. Wee another 500 of saline, 4 Zofran, Toradol. Patient normally drinks coffee but did not get it this morning so we tried to give her some cough here in the ER. Even after IV antiemetics she had ongoing nausea. She was ill drink a few sips of juice and half of a saltine cracker but then got nauseous again After IV fluids, patient is able to ambulate in the hallway but is still unsteady. In discussion with the patient's family (her daughter arrived afternoon) we feel that admission for supportive care would be beneficial at least for 1 night. Patient is strong agreement. Discussed with our hospitalist, Dr. Vargas , who agrees to admit. Lab Data Labs: Lab Results 03/25/24 Range/Units 11:47 WBC 6.15 (4.50-11.00) K/uL RBC 3.77 L (4.00-5.20) m/uL Hgb 11.6 L (12.0-16.0) gm/dL Hct 34.0 (33.0-51.0) % MCV 90 (80-100) fL MCH 31 (26-34) pg MCHC 34 (32-36) gm/dL RDW Coeff of Shantanu 12.1 (11.5-15.5) % Plt Count 151 (140-440) K/uL Neut % (Auto) 92.6 H (42.0-72.0) % Lymph % (Auto) 3.1 L (20-44) % Spencer % (Auto) 4.1 (0.0-11.0) % Eos % (Auto) 0.0 (0.0-7.0) % Baso % (Auto) 0.0 (0.0-3.0) % Neut # (Auto) 5.70 (1.7-7.0) K/uL Lymph # (Auto) 0.20 L (0.90-2.90) K/uL Spencer # (Auto) 0.30 (0.00-0.90) K/UL Eos # (Auto) 0.00 (0.00-0.50) K/uL Baso # (Auto) 0.00 (0.00-0.30) K/uL Abs Immat Gran (auto) 0.01 (0.00-0.30) K/uL Imm/Tot Granulo (auto) 0.2 % Sodium 134 L (135-149) mmol/L Potassium 3.3 L (3.6-5.1) mmol/L Chloride 108 (96-114) mmol/L Carbon Dioxide 20 (20-32) mmol/L Anion Gap 6 L (7-15) mEq/L BUN 7 (7-30) mg/dL Creatinine 0.4 L (0.5-1.5) mg/dL Estimated Creat Clear 32.96 Estimated GFR 98 ml/min Glucose 101 (60-115) mg/dL Calcium 7.1 L (8.4-10.6) mg/dL Imaging Data CT scan - head: Attestation: I have reviewed the pertinent imaging results. Radiologist's impression: IMPRESSION: No acute intracranial abnormality. ECG Data Attestation: I personally reviewed and interpreted this ECG as follows: Interpretation: Normal sinus rhythm Rate: 76 CO: 168 QRS axis: Normal axis ST segment/T wave: No ST segment elevation or depression. Nonspecific T-wave flattening QTc: 441 Discharge Plan Discharge Clinical Impression: Headache, Nausea, Dizziness Closed fracture of both wrists Qualifiers: Encounter type: initial encounter Qualified Code(s): S62.101A - Fracture of unspecified carpal bone, right wrist, initial encounter for closed fracture Patient Disposition: Admitted As Observation
[2024-03-25] MEDS: KETOROLAC 15 MG/ML inj IVP (11:32)
[2024-03-25] MEDS: ONDANSETRON 2 MG/ML inj 4 MG IVP ×2 (11:32→17:13)
[2024-03-25 11:52] LABS: Hemoglobin* 11.6 gm/dL (12.0-16.0); Immature Granulocytes Abs Auto 0.01 K/uL (0.00-0.30); Immature Granulocytes Pct Auto 0.2 %; Lymphocytes Percent Auto 3.1 % (20-44); Mean Corpuscular HGB Conc 34 gm/dL (32-36); Mean Corpuscular Hemoglobin 31 pg (26-34); Mean Corpuscular Volume 90 fL (80-100); Monocytes Percent Auto 4.1 % (0.0-11.0); Neutrophils Percent Auto 92.6 % (42.0-72.0); Platelet Count* 151 K/uL (140-440); RDW Coefficient of Variation % 12.1 % (11.5-15.5); Red Blood Count 3.77 m/uL (4.00-5.20); White Blood Count* 6.15 K/uL (4.50-11.00)
[2024-03-25] MEDS: 0.9 % SODIUM CHLORIDE 1000 ml 1,000 ML IV (12:00)
[2024-03-25 12:06] LABS: Chloride* 108 mmol/L (96-114); Potassium* 3.3 mmol/L (3.6-5.1); Slide Review Reflex No; Sodium* 134 mmol/L (135-149)
[2024-03-25 12:09] LABS: Blood Urea Nitrogen* 7 mg/dL (7-30); Creatinine* 0.4 mg/dL (0.5-1.5); Est. Creatinine Clearance* 32.96; Estimated Glomerular Filt Rate 98 ml/min
[2024-03-25 12:10] LABS: Anion Gap 6 mEq/L (7-15); Calcium* 7.1 mg/dL (8.4-10.6); Carbon Dioxide* 20 mmol/L (20-32); Glucose* 101 mg/dL (60-115)
[2024-03-25 14:05] VITALS: BP 133/77; PULSE 73; RESP 18; O2SAT 97
[2024-03-25 16:14] VITALS: BP 163/95; PULSE 79; RESP 18; O2SAT 97; BMI 18.7
--- NOTE | 2024-03-25 16:42 | PM.IMHP1 ---
Hospitalist- H&P: HPI History of Present Illness Date Seen: 03/25/24 Chief complaint: Fall, headache Narrative: Angela Zapata is a 83 year old woman presented to the [facility] Emergency Department this morning with headache, nausea, vomiting, dizziness. She was also seen in the emergency department yesterday evening status post fall. Found to have bilateral wrist fractures which are now splinted. It is anticipated that the left wrist will only require a splinter possibly a short-arm cast. The right wrist will possibly require surgical stabilization. Was discharged home yesterday night but has had persistent nausea vomiting headache since. Has a sense of orthostasis and lightheadedness with head movement particularly transferring from supine to sitting or sitting to standing. Because patient's symptoms of headache, nausea, vomiting, dizziness are persistent she presents to the emergency department for further assessment. Denies fever, rigors, diaphoresis. Review of Systems Status of ROS: Reports: 6 or more systems reviewed and unremarkable except as noted in History and below Narrative: No cardiopulmonary symptoms. Denies genitourinary symptoms. No focal motor neurologic symptoms. Denies diplopia or other cranial nerve abnormalities aside from the dizziness. Denies focal motor neurologic deficits. [facility] Medical History (Updated 03/25/24 @ 16:57 by Balwinder Vargas MD) Thyroid nodule ?E04.1 - Nontoxic single thyroid nodule (ICD-10) Rectal bleeding ?K62.5 - Hemorrhage of anus and rectum (ICD-10) Stage 3a chronic kidney disease ?N18.31 - Chronic kidney disease, stage 3a (ICD-10) Closed nondisplaced fracture of distal phalanx of right middle finger ?S62.662A - Nondisplaced fracture of distal phalanx of right middle finger, initial encounter for closed fracture (ICD-10) Osteopenia ?M85.80 - Other specified disorders of bone density and structure, unspecified site (ICD-10) Adenomatous colon polyp ?D12.6 - Benign neoplasm of colon, unspecified (ICD-10) Osteoporosis ?M81.0 - Age-related osteoporosis without current pathological fracture (ICD-10) Hypothyroidism ?E03.9 - Hypothyroidism, unspecified (ICD-10) Hip fracture, left ?S72.002A - Fracture of unspecified part of neck of left femur, initial encounter for closed fracture (ICD-10) Surgical History History of hip surgery (04/09/18) ?Z98.890 - Other specified postprocedural states (ICD-10) H/O hernia repair ?Z98.890 - Other specified postprocedural states (ICD-10) ?Z87.19 - Personal history of other diseases of the digestive system (ICD-10) Social History Smoking Status: Never smoker Do you use any of these nicotine containing products: None How often do you have a drink containing alcohol: never How often do you have six or more drinks on one occasion: Never AUDIT-C Alcohol total score: 0 Non-prescribed substance use: denies use Meds Home Medications and Allergies Home Medications ?Medication ?Instructions ?Recorded ?Confirmed ?Type levothyroxine 75 mcg tablet 75 mcg PO DAILY 06/15/22 03/25/24 History calcium 600 mg (as 1 tab PO BID 03/25/24 03/25/24 History carbonate)-vitamin D3 10 mcg (400 unit) tablet (Calcium 600 + D(3)) Allergies Allergy/AdvReac Type Severity Reaction Status Date / Time Latex, Natural Rubber Allergy Unknown Verified 03/24/24 17:24 Sulfa (Sulfonamide Allergy Unknown Verified 03/24/24 17:24 Antibiotics) nickel Allergy Verified 03/25/24 15:51 Exam Narrative: Exam Narrative: I initially evaluate the patient in the emergency department. When she is sitting still she appears comfortable no acute distress. Vision and hearing are adequate. Friendly, articulate, cooperative. Alert and oriented x4. Cranial nerves 3-12 normal. Known nystagmus, spontaneous or inducible. Does complain of lightheadedness when transferring from supine to sitting. Lungs are clear to auscultation. Heart tones with regular rhythm. Abdomen is thin and benign. Bilateral wrist splints in place. Able to move digits. Const: Vital Signs, click to edit/add: Vital Signs - 24 hr 03/25/24 10:29 03/25/24 14:05 Temperature 98.9 F Pulse Rate [Right Pulse Oximeter] 75 73 Respiratory Rate 20 18 Blood Pressure [Ri ght Upper Arm] 166/99 H 133/77 Pulse Oximetry 95 97 Oxygen Delivery Me thod Room Air Room Air Hospitalist - H&P: Result Labs Labs: Short CBC 03/25/24 Range/Units 11:47 WBC 6.15 (4.50-11.00) K/uL Hgb 11.6 L (12.0-16.0) gm/dL Hct 34.0 (33.0-51.0) % Plt Count 151 (140-440) K/uL BMP 03/25/24 11:47 Sodium 134 L Potassium 3.3 L Chloride 108 Carbon Dioxide 20 BUN 7 Creatinine 0.4 L Glucose 101 Calcium 7.[address] scan - head: Attestation: I have reviewed the pertinent imaging results. Radiologist's impression: No acute intracranial processes. Left wrist x-ray: Radiologist's impression: 1. Focal buckling of the cortex along the radial styloid is noted with adjacent soft tissue swelling. Correlation with physical exam for focal tenderness in this region is recommended to exclude an acute fracture. Right wrist x-ray: Radiologist's impression: 1. There is a comminuted intra-articular fracture of the distal radius present with dorsal angulation of the articular surface by 20 degrees. Assessment and Plan Assessment and plan (1) Headache: Problem comment: - Post concussion 03/24/2024, fall from standing state - may have component of caffeine headache Status: Acute (2) Nausea: Problem comment: - in association with post-concussion headache, status post fall on 03/24/2024 from falling state Status: Acute (3) Dizziness: Problem comment: - possibly orthostatic as well as dehydration as well as post-concussion Status: Acute (4) Post-concussion syndrome: Problem comment: - status post fall from standing state on 03/24/2024 Status: Acute (5) Closed fracture nasal bone: Problem comment: - status post fall from standing state on 03/24/2024 Status: Acute (6) Closed fracture of both wrists: Problem comment: - status post fall from standing state on 03/24/2024 - PT and OT consultation - licensed clinical social worker consultation to consider discharge disposition plan options. Patient has supportive family who are willing to help in her home. Patient is also willing to consider transitional care services if warranted. Status: Acute (7) Hypothyroidism: Problem comment: - continue with 75 mcg once daily Status: Acute Plan 1. Admit for observation 2. IV fluids with liquid diet only for now and advance as deemed safe and when she is ready 3. Scheduled acetaminophen and ibuprofen with p.r.n. oxycodone low dose 4. Scopolamine patch 1 mg q.72 hours 5. P.r.n. prochlorperazine and p.r.n. ondansetron 6. Other plans as specified above 7. Orthostatic blood pressure and pulse tomorrow morning 8. Daily weight 9. Reviewed with patient and daughter and answered their question 10. They are agreeable with above stated plans and recommendations Total Time Spent Total Time Spent: 50 minutes
[2024-03-25] MEDS: 0.9 % SODIUM CHLORIDE 1000 ml 1,000 ML 125 ML IV (17:13)
[2024-03-25] MEDS: POTASSIUM CHLORIDE 10 MEQ/100 ML PIGGYBACK 100 MEQ IVPB ×2 (18:01→22:02)
[2024-03-25] MEDS: ACETAMINOPHEN 500 MG TABLET 1000 MG PO (18:02)
[2024-03-25] MEDS: SCOPOLAMINE 1 MG/3 DAY PATCH 1 PATCH TRANSDERMA (18:40)
[2024-03-25 19:00] VITALS: BP 163/92; PULSE 76; RESP 18; TEMP 36.8; O2SAT 97
--- NOTE | 2024-03-25 19:25 | PC.NURSE ---
Nursing Care Hours: [id number] Pt this shift arrived to the floor alert and oriented. HTN, otherwise VSS. Pain rated 1-2/10 on bilat wrist, and 0/10 headache. Nausea present and treated with scheduled and PRN meds. Appears nausea increases with medication administration and movement of head of bed. Cool wash cloths given and aromatherapy initiated. IV fluids started. K+ infusion started as piggyback. When pt c/o pain to upper arm, senior underwriter switched set to Y-site. Applied warm blanket to upper arm and no further c/o pain from pt. LUE has no redness or swelling noted. Up with Ax1/SB to bathroom.
[2024-03-25 22:06] VITALS: BP 163/99; PULSE 67; PULSE 76; RESP 18; TEMP 36.8; O2SAT 96
[2024-03-26] VITALS (16 sets, daily range): BP systolic 122–165; BP diastolic 70–95; PULSE 57–86; RESP 14–18; TEMP 36.3–36.8; O2SAT 95–99
[2024-03-26] MEDS: ACETAMINOPHEN 500 MG TABLET 1000 MG PO ×3 (02:37→17:40)
--- NOTE | 2024-03-26 05:24 | PC.NURSE ---
Shift note: P is alert and Oriented. More steady and stable than the start of the shift.She endorsed nausea at 1930. Zofran was given at 1845 which is less than an hour interval. Pt was educated to wait for the full effect of the Zofran. reassessed at 2029 and she confirmed feeling better. SBA to BR. Pt did not sleep much. Pain level has been at 2 and 3. Cast to both Upper extremities intact and sling to the right arm.
[2024-03-26 06:35] LABS: Hemoglobin* 12.7 gm/dL (12.0-16.0)
[2024-03-26] MEDS: LEVOTHYROXINE 75 MCG TABLET PO (06:36)
[2024-03-26 06:51] LABS: Potassium* 3.8 mmol/L (3.6-5.1)
[2024-03-26] MEDS: IBUPROFEN 400 MG TABLET PO ×2 (07:37→19:29)
[2024-03-26] MEDS: SODIUM CHLORIDE 0.9 % (FLUSH) 10 ML SYRINGE 5 ML IVF (08:40)
--- NOTE | 2024-03-26 08:54 | NUTR.NU ---
RDN with MD consult. Patient admitted s/p fall, requiring right wrist surgery. Plan is for surgery today. Currently NPO. Not appropriate for nutrition visit at this time. RDN will attempt to visit when more appropriate.
--- NOTE | 2024-03-26 10:49 | PM.IMPN1 ---
Progress Note: A&P Assessment and plan (1) Closed fracture of both wrists: Problem details: - status post fall from standing state on 03/24/2024 - R wrist requires surgical intervention, to OR with Dr. Lopez 03/26/24 Status: Acute (2) Nausea: Problem details: - in association with post-concussion headache, status post fall on 03/24/2024 from falling state - possibly iatrogenic as well (Oxycodone); has done better with Hydrocodone in the past - will attempt to advance diet postoperatively, trial Hydrocodone over Oxycodone for pain Status: Acute (3) Headache: Problem details: - Post concussion 03/24/2024, fall from standing state - may have component of caffeine headache Status: Acute (4) Dizziness: Problem details: - combination of orthostasis, dehydration, post-concussive syndrome - continue to monitor symptoms Status: Acute (5) Post-concussion syndrome: Problem details: - status post fall from standing state on 03/24/2024 Status: Acute (6) Closed fracture nasal bone: Problem details: - status post fall from standing state on 03/24/2024 Status: Acute (7) Hypothyroidism: Problem details: - continue with 75 mcg once daily Status: Acute Plan - per above Subjective Date Seen: 03/26/24 Interval history: Angela was admitted to the hospital on 03/25/24 for nausea and headache in the setting of recent fall with head injury + bilateral wrist fractures. She was seen in the ER on 03/24 after her fall, diagnosed with B wrist fractures + L nasal bone fracture, splinted and discharged home with Oxycodone and outpatient Ortho followup. Represented to ER yesterday for decreased po intake, headache and nausea; combination of post concussive syndrome + iatrogenic from oxycodone. Seen by Orthopedic surgery this morning, plan for fixation of right distal radius fracture today (left wrist fracture is non operative). Feeling a little better this morning, hasn't been eating so unsure if her nausea would return with po intake. Labs stable. Has had previous surgeries without anesthetic or operative complications. Exam Narrative: Exam Narrative: GEN: Alert and oriented, laying comfortably in bed HEENT: EOMIs bilaterally, no scleral icterus CV: RRR, No concerning murmurs R: LCTA bilaterally without concerning wheezing Ext: Bilateral wrist splints, normal movement, sensation, and capillary refill of fingers Skin: No concerning skin lesions or rashes on exposed skin Neuro: Nonfocal Psych: Appropriate Const: Vital Signs, click to edit/add: Vital Signs - 24 hr 03/25/24 14:05 03/25/24 16:14 03/25/24 19:00 Temperature 98.2 F Pulse Rate [Left P ulse Oximeter] 79 76 Pulse Rate [Right Pulse Oximeter] 73 Pulse Rate [orthos tatic lying Left P ulse Oximeter] Pulse Rate [orthos tatic sitting Left Pulse Oximeter] Pulse Rate [orthos tatic standing Lef t Pulse Oximeter] Respiratory Rate 18 18 18 Blood Pressure [Le ft Arm] 163/95 H 163/92 H Blood Pressure [Ri ght Upper Arm] 133/77 Blood Pressure [or thostatic lying Le ft Arm] Blood Pressure [or thostatic sitting Left Arm] Blood Pressure [or thostatic standing Left Arm] Pulse Oximetry 97 97 97 Oxygen Delivery Me thod Room Air Room Air Room Air 03/25/24 22:06 03/25/24 22:06 03/25/24 22:06 Temperature 98.2 F Pulse Rate [Left P ulse Oximeter] 76 67 Pulse Rate [Right Pulse Oximeter] Pulse Rate [orthos tatic lying Left P ulse Oximeter] Pulse Rate [orthos tatic sitting Left Pulse Oximeter] Pulse Rate [orthos tatic standing Lef t Pulse Oximeter] Respiratory Rate 18 18 18 Blood Pressure [Le ft Arm] 163/99 H Blood Pressure [Ri ght Upper Arm] Blood Pressure [or thostatic lying Le ft Arm] Blood Pressure [or thostatic sitting Left Arm] Blood Pressure [or thostatic standing Left Arm] Pulse Oximetry 96 96 Oxygen Delivery Me thod Room Air Room Air 03/26/24 02:44 03/26/24 06:00 03/26/24 07:30 Temperature 98 F 97.6 F Pulse Rate [Left P ulse Oximeter] 67 68 Pulse Rate [Right Pulse Oximeter] Pulse Rate [orthos tatic lying Left P ulse Oximeter] 60 Pulse Rate [orthos tatic sitting Left Pulse Oximeter] 68 Pulse Rate [orthos tatic standing Lef t Pulse Oximeter] 86 Respiratory Rate 18 18 Blood Pressure [Le ft Arm] 134/85 145/82 H Blood Pressure [Ri ght Upper Arm] Blood Pressure [or thostatic lying Le ft Arm] 138/85 Blood Pressure [or thostatic sitting Left Arm] 134/88 Blood Pressure [or thostatic standing Left Arm] 123/91 H Pulse Oximetry 95 99 Oxygen Delivery Me thod Room Air Room Air 03/26/24 07:30 03/26/24 08:23 Temperature Pulse Rate [Left P ulse Oximeter] 68 Pulse Rate [Right Pulse Oximeter] Pulse Rate [orthos tatic lying Left P ulse Oximeter] Pulse Rate [orthos tatic sitting Left Pulse Oximeter] Pulse Rate [orthos tatic standing Lef t Pulse Oximeter] Respiratory Rate 18 18 Blood Pressure [Le ft Arm] Blood Pressure [Ri ght Upper Arm] Blood Pressure [or thostatic lying Le ft Arm] Blood Pressure [or thostatic sitting Left Arm] Blood Pressure [or thostatic standing Left Arm] Pulse Oximetry 99 Oxygen Delivery Me thod Room Air Labs Labs: Laboratory Results - last 24 hr 03/25/24 03/26/24 11:47 05:57 WBC 6.15 RBC 3.77 L Hgb 11.6 L 12.7 Hct 34.0 MCV 90 MCH 31 MCHC 34 RDW Coeff of Shantanu 12.1 Plt Count 151 Neut % (Auto) 92.6 H Lymph % (Auto) 3.1 L Marion % (Auto) 4.1 Eos % (Auto) 0.0 Baso % (Auto) 0.0 Neut # (Auto) 5.70 Lymph # (Auto) 0.20 L Marion # (Auto) 0.30 Eos # (Auto) 0.00 Baso # (Auto) 0.00 Abs Immat Gran (auto) 0.01 Imm/Tot Granulo (auto) 0.2 Sodium 134 L Potassium 3.3 L 3.8 Chloride 108 Carbon Dioxide 20 Anion Gap 6 L BUN 7 Creatinine 0.4 L Estimated Creat Clear 32.96 Estimated GFR 98 Glucose 101 Calcium 7.1 L
[2024-03-26] MEDS: MIDAZOLAM HCL 1 MG/ML inj IVP (12:29)
[2024-03-26] MEDS: fentaNYL 100 MCG/2 ML inj IVP (12:29)
--- NOTE | 2024-03-26 12:36 | W.PM.NB ---
Nerve Block Nerve Block Time Seen by Provider: 12:33 Date Seen: 03/26/24 Type of block requested by surgeon for post-operative analgesia: supraclavicular Side: right Time out performed: Yes Verification of patient name: Yes Verification of date of : Yes Site marking: site marked Name of person performing procedure: Indra Continuous monitoring Was continuous monitoring of O2 sat, B/P, automatic embroidery machine tender, recorded every 15 minutes?: Yes Procedure Checklist: sterile prep, needles and gloves Ultrasound guided. Images saved: Yes Medications given in 5ml increments after negative aspiration: Ropivicaine %: 0.5 mL: 20 Needle gauge: 22 Precedex (mcg): 25 Patient tolerated procedure well: Yes Block Charges Block Charge (with Pro Fee): Brachial Plexus Use of Ultrasound Machine for Block: Yes- US Guidance/pain block
--- NOTE | 2024-03-26 12:46 | SUR.PREOP ---
TIME?OUT:?1229 PT/RN/MDA?VERIFICATION?OF?SURGICAL?SITE,?PROCEDURE,?AND?CONSENT OBTAINED?PRIOR?TO?INVASIVE?PROCEDURE.
[2024-03-26] MEDS: CEFAZOLIN 2 GM in 0.9 % SODIUM CHLORIDE Mini-bag 100 ML IVPB (13:12)
--- NOTE | 2024-03-26 13:36 | W.ANESCHARGE ---
Anesthesia Charges Start Date/Time Anesthesia Start Date: 03/26/24 Anesthesia Start Time: 13:00 Stop Date/Time Anesthesia Stop Date: 03/26/24 Anesthesia Stop Time: 14:37 Summary Extremes of Age - Over 70 or under 1: MDA Coding CPT Codes CPT Codes: ANESTH LOWER ARM SURGERY - 09102 ([id number]) P2 - PATIENT W/MILD SYST DISEASE, QK - MANAGER CUSTOM 2-4 CNCRNT ANES PROC, QX - MANAGER IN TRAINING SVC W/ MD MED DIRECTION Additional Codes: Summary - Extremes of Age - Over 70 or under 1: MDA ([id number])
--- NOTE | 2024-03-26 14:10 | PM.ORPRC ---
Procedure Note Date of procedure: 03/26/24 Procedure: PREOPERATIVE DIAGNOSES: 1. Right distal radius fracture intraarticular with comminution and dorsal angulation/displacement - unstable; 3+part 2. Left distal radius fracture, extra-articular, metaphyseal, minimally displaced POSTOPERATIVE DIAGNOSES: 1. Right distal radius fracture intraarticular with comminution and dorsal angulation/displacement - unstable; 3+part 2. Left distal radius fracture, extra-articular, metaphyseal, minimally displaced NAME OF OPERATION: 1. Right distal radius open reduction with internal fixation of intraarticular fracture (3+ parts) 2. Left distal radius closed treatment with short-arm splint application today 3. 59103 - intraoperative fluoroscopy up to 1 hour. SURGEON: Daniel Loepz MD BOOK MENDER: Roderick Lund - Of note, an perioperative assistant was critical for this case to aide in patient positioning, limb manipulation, tissue retraction, closure, and splinting. ANESTHESIA: Regional block + MAC IMPLANTS: Synthes dual column volar locking plate with 2.7 mm cortical nonlocking screw in the shaft and 2.4 distal locking pegs and proximal locking screws (multiple). TOURNIQUET: 46 minutes at 225 torr. INDICATIONS: The patient is a pleasant, 83-year-old female who sustained fall from a standing height approximately 2 days ago. She landed on outstretched bilateral upper extremities. The right had severe pain and obvious deformity. The left had significant pain as well. She was evaluated [facility]. X-rays were obtained revealed bilateral distal radius fractures. The left was minimally displaced at the right was substantially displaced with significant angulation and shortening. Given the bilateral upper extremity involvement and the significant displacement of the right side, surgery was indicated and recommended to improve the alignment and stabilize the right distal radius and recent splint and treat closed of the left distal radius fracture FINDINGS: Closed, comminuted, displaced intra-articular 3+ part distal radius fracture on the right side. PROCEDURE: Following a thorough discussion of risks, benefits, and alternatives, consent was obtained and the operative extremity was marked. The patient was brought to the operating room and placed supine on the operating table. Induction of anesthesia was achieved. Appropriate time out was performed identifying proper patient, site and procedure. 1 gram of iv Ancef was administered within 1 hour of incision preoperatively. The right upper extremity was prepped and draped in the appropriate sterile fashion using ChloraPrep prep. The limb was exsanguinated and the tourniquet inflated. A longitudinal incision was made overlying the FCR tendon. Sharp incision through skin and subcutaneous tissue allowed identification of the FCR tendon. The superficial sheath was sharply divided, the tendon retracted ulnarly, and the deep fascial sheath also released. The FPL was retracted ulnarly and the pronator quadratus was sharply released from the radial border of the radius and subperiosteally elevated. The fracture was encountered and cleared of interposed periosteum / fracture hematoma. A reduction was performed and the appropriate plate selected. Temporary stabilization allowed C-arm fluoroscopy to confirm proper fracture reduction and plate positioning. The oblong hole was filled with a nonlocking screw followed by multiple distal locking pegs being careful to keep these in subchondral bone and extraarticular. Finally, the remaining proximal shaft screws were drilled and placed. Fluoroscopic imaging confirmed the improved position and showed the fracture to be stable. At this stage, the wound was thoroughly irrigated with normal saline. Closure performed with 0 Vicryl for the pronator quadratus, followed by deflation of the tourniquet. All major bleeding points were cauterized. Closure was then completed with 2-0 Stratafix and 4-0 Monocryl for a subcutaneous and subcuticular layers, respectively. At this point, the chondral left upper extremity underwent a short-arm splint application as the current splint was far too extensive extending out to her fingertips. A volar splint was applied and allowed to harden to support her mildly displaced left distal radius fracture. Dressings were applied along with a volar/dorsal splint. The patient was awoken from anesthesia and transferred to PACU in stable condition. PLAN: 1. Elevate operative extremity. 2. Ice, acetominphen or ibuprofen PRN. 3. Oxycodone for pain as needed. 4. Follow up with PA visit in 10-16 days for wound check and splint removal on the right upper extremity. She can transition to wrist brace on the right upper extremity but maintain splint on the left upper extremity. Initiate occupational therapy at 3 weeks for the right upper extremity. Follow up then at the 4.5 week shruthi postop with nh for x-rays bilateral wrist two views.
--- NOTE | 2024-03-26 14:16 | PM.ORCN ---
History of Present Illness HPI Date Seen: 03/26/24 Chief complaint: Fall, headache Narrative: Angela is an 83 year old female with a history for a fall from a standing height on 03/24/2024 landing on outstretched bilateral upper extremities. She was seen in [facility] ED at the time. X-rays were obtained revealed bilateral distal radius fractures. The left was minimally displaced but the right was substantially displaced. She was given bilateral upper extremity short-arm splints and encouraged to follow up in Orthopedics in an outpatient setting. Unfortunately, it seems narcotic analgesics have caused significant nausea, vomiting, dizziness, and headaches. Thus, she return to the emergency department 03/25/2024. Decision was made to admit her to the hospitalist team. Orthopedics was subsequently consulted. [facility] Medical History (Updated 03/26/24 @ 11:18 by Lexi Esparza MD) Thyroid nodule ?E04.1 - Nontoxic single thyroid nodule (ICD-10) Rectal bleeding ?K62.5 - Hemorrhage of anus and rectum (ICD-10) Stage 3a chronic kidney disease ?N18.31 - Chronic kidney disease, stage 3a (ICD-10) Closed nondisplaced fracture of distal phalanx of right middle finger ?S62.662A - Nondisplaced fracture of distal phalanx of right middle finger, initial encounter for closed fracture (ICD-10) Osteopenia ?M85.80 - Other specified disorders of bone density and structure, unspecified site (ICD-10) Adenomatous colon polyp ?D12.6 - Benign neoplasm of colon, unspecified (ICD-10) Osteoporosis ?M81.0 - Age-related osteoporosis without current pathological fracture (ICD-10) Hypothyroidism ?E03.9 - Hypothyroidism, unspecified (ICD-10) Hip fracture, left ?S72.002A - Fracture of unspecified part of neck of left femur, initial encounter for closed fracture (ICD-10) Surgical History History of hip surgery (04/09/18) ?Z98.890 - Other specified postprocedural states (ICD-10) H/O hernia repair ?Z98.890 - Other specified postprocedural states (ICD-10) ?Z87.19 - Personal history of other diseases of the digestive system (ICD-10) Social History What is your current living situation?: I presently have a place to live Problems where you live: no known problems Problems where you live details: NA In the past 12 months, utilities in danger of being shut off: no In past 12 months, lack of transportation kept you from medical appts, meetings, work, or getting things needed for daily living: no In the past 12 mos, have been you worried that your food would run out before you had money to buy more?: never true In the past 12 mos, the food you bought just didn't last and you didn't have money to buy more?: never true Highest level of school completed/degree received: Master's degree Smoking Status: Never smoker Do you use any of these nicotine containing products: None How often do you have a drink containing alcohol: 2-4 times a month Alcohol type: beer How many standard drinks containing alcohol do you have on a typical day: 1 or 2 How often do you have six or more drinks on one occasion: Never AUDIT-C Alcohol total score: 2 Non-prescribed substance use: denies use Caffeine: Yes (coffee) How often does anyone, including family, friends and others, physically hurt you: never How often does anyone, including family, friends and others, insult or talk down to you: never How often does anyone, including family, friends and others, threaten you with harm: never How often does anyone, including family, friends and others, scream or curse at you: never service: No Meds Home Medications and Allergies Home Medications ?Medication ?Instructions ?Recorded ?Confirmed ?Type levothyroxine 75 mcg tablet 75 mcg PO DAILY 06/15/22 03/25/24 History calcium 600 mg (as 1 tab PO BID 03/25/24 03/25/24 History carbonate)-vitamin D3 10 mcg (400 unit) tablet (Calcium 600 + D(3)) Allergies Allergy/AdvReac Type Severity Reaction Status Date / Time Latex, Natural Rubber Allergy Unknown Verified 03/24/24 17:24 Sulfa (Sulfonamide Allergy Unknown Verified 03/24/24 17:24 Antibiotics) nickel Allergy Verified 03/25/24 15:51 Ortho Exam Narrative Exam Narrative: Alert and orient x3. Resting in the hospital bed supine comfortably. Cooperative and lucid. Interactive with the exam. Remarkably pleasant given the circumstances. Bilateral upper extremity show short-arm splints to be in place extending up to the finger tips not allowing any finger range of motion currently. Digit tips pink, warm, brisk cap refill. Of range of motion is full and symmetric without pain. Const Vital Signs, click to edit/add: Vital Signs - 24 hr 03/25/24 16:14 03/25/24 19:00 03/25/24 22:06 Temperature 98.2 F Pulse Rate Pulse Rate [Left Pulse Oximeter] 79 76 76 Pulse Rate [orthostatic lying Left Pulse Oximeter] Pulse Rate [orthostatic sitting Left Pulse Oximeter] Pulse Rate [orthostatic standing Left Pulse Oximeter] Respiratory Rate 18 18 18 Blood Pressure Blood Pressure [Left Arm] 163/95 H 163/92 H Blood Pressure [orthostatic lying Left Arm] Blood Pressure [orthostatic sitting Left Arm] Blood Pressure [orthostatic standing Left Arm] Pulse Oximetry 97 97 Oxygen Delivery Method Room Air Room Air Oxygen Flow Rate 03/25/24 22:06 03/25/24 22:06 03/26/24 02:44 Temperature 98.2 F 98 F Pulse Rate Pulse Rate [Left Pulse Oximeter] 67 67 Pulse Rate [orthostatic lying Left Pulse Oximeter] Pulse Rate [orthostatic sitting Left Pulse Oximeter] Pulse Rate [orthostatic standing Left Pulse Oximeter] Respiratory Rate 18 18 18 Blood Pressure Blood Pressure [Left Arm] 163/99 H 134/85 Blood Pressure [orthostatic lying Left Arm] Blood Pressure [orthostatic sitting Left Arm] Blood Pressure [orthostatic standing Left Arm] Pulse Oximetry 96 96 95 Oxygen Delivery Method Room Air Room Air Room Air Oxygen Flow Rate 03/26/24 06:00 03/26/24 07:30 03/26/24 07:30 Temperature 97.6 F Pulse Rate Pulse Rate [Left Pulse Oximeter] 68 68 Pulse Rate [orthostatic lying Left Pulse Oximeter] 60 Pulse Rate [orthostatic sitting Left Pulse Oximeter] 68 Pulse Rate [orthostatic standing Left Pulse Oximeter] 86 Respiratory Rate 18 18 Blood Pressure Blood Pressure [Left Arm] 145/82 H Blood Pressure [orthostatic lying Left Arm] 138/85 Blood Pressure [orthostatic sitting Left Arm] 134/88 Blood Pressure [orthostatic standing Left Arm] 123/91 H Pulse Oximetry 99 Oxygen Delivery Method Room Air Oxygen Flow Rate 03/26/24 08:23 03/26/24 11:14 03/26/24 12:29 Temperature 97.5 F L Pulse Rate 71 Pulse Rate [Left Pulse Oximeter] 62 Pulse Rate [orthostatic lying Left Pulse Oximeter] Pulse Rate [orthostatic sitting Left Pulse Oximeter] Pulse Rate [orthostatic standing Left Pulse Oximeter] Respiratory Rate 18 18 18 Blood Pressure 165/95 H Blood Pressure [Left Arm] 141/83 H Blood Pressure [orthostatic lying Left Arm] Blood Pressure [orthostatic sitting Left Arm] Blood Pressure [orthostatic standing Left Arm] Pulse Oximetry 99 98 98 Oxygen Delivery Method Room Air Room Air Nasal Cannula Oxygen Flow Rate 2 03/26/24 12:40 Temperature Pulse Rate 58 L Pulse Rate [Left Pulse Oximeter] Pulse Rate [orthostatic lying Left Pulse Oximeter] Pulse Rate [orthostatic sitting Left Pulse Oximeter] Pulse Rate [orthostatic standing Left Pulse Oximeter] Respiratory Rate 18 Blood Pressure 132/83 Blood Pressure [Left Arm] Blood Pressure [orthostatic lying Left Arm] Blood Pressure [orthostatic sitting Left Arm] Blood Pressure [orthostatic standing Left Arm] Pulse Oximetry 99 Oxygen Delivery Method Nasal Cannula Oxygen Flow Rate 2 Results Labs Labs: Laboratory Results - last 48 hr 03/25/24 03/26/24 11:47 05:57 WBC 6.15 RBC 3.77 L Hgb 11.6 L 12.7 Hct 34.0 MCV 90 MCH 31 MCHC 34 RDW Coeff of Shantanu 12.1 Plt Count 151 Neut % (Auto) 92.6 H Lymph % (Auto) 3.1 L [place] % (Auto) 4.1 Eos % (Auto) 0.0 Baso % (Auto) 0.0 Neut # (Auto) 5.70 Lymph # (Auto) 0.20 L [place] # (Auto) 0.30 Eos # (Auto) 0.00 Baso # (Auto) 0.00 Abs Immat Gran (auto) 0.01 Imm/Tot Granulo (auto) 0.2 Sodium 134 L Potassium 3.3 L 3.8 Chloride 108 Carbon Dioxide 20 Anion Gap 6 L BUN 7 Creatinine 0.4 L Estimated Creat Clear 32.96 Estimated GFR 98 Glucose 101 Calcium 7.1 L Diagnostic results Additional Comments: The following radiographs were obtained from [facility] 03/24/2024. These were ordered by different provider and reviewed by me. - two views left forearm which shows minimally displaced left distal radius fracture with buckling of the radial styloid region. It appears extra-articular. - 3 views left wrist which shows again minimally displaced left distal radius fracture with buckling of the radial styloid region again without intra-articular involvement. - three views right wrist which shows intra-articular distal radius fracture with significant shortening (6+ mm) dorsal angulation of approximately 30+ degrees, and loss of radial inclination. Assessment and Plan Assessment and plan (1) Closed fracture of both wrists: Problem comment: - status post fall from standing state on 03/24/2024 - R wrist requires surgical intervention, to OR with Dr. Lopez 03/26/24 Status: Acute Total time spent: Total time spent is greater than 50% in coordination of care (as documented) at patient's floor/unit and/or counseling patient: (2) Nausea: Problem comment: - in association with post-concussion headache, status post fall on 03/24/2024 from falling state - possibly iatrogenic as well (Oxycodone); has done better with Hydrocodone in the past - will attempt to advance diet postoperatively, trial Hydrocodone over Oxycodone for pain Status: Acute Total time spent: Total time spent is greater than 50% in coordination of care (as documented) at patient's floor/unit and/or counseling patient: (3) Headache: Problem comment: - Post concussion 03/24/2024, fall from standing state - may have component of caffeine headache Status: Acute Total time spent: Total time spent is greater than 50% in coordination of care (as documented) at patient's floor/unit and/or counseling patient: (4) Dizziness: Problem comment: - combination of orthostasis, dehydration, post-concussive syndrome - continue to monitor symptoms Status: Acute Total time spent: Total time spent is greater than 50% in coordination of care (as documented) at patient's floor/unit and/or counseling patient: (5) Post-concussion syndrome: Problem comment: - status post fall from standing state on 03/24/2024 Status: Acute Total time spent: Total time spent is greater than 50% in coordination of care (as documented) at patient's floor/unit and/or counseling patient: (6) Closed fracture nasal bone: Problem comment: - status post fall from standing state on 03/24/2024 Status: Acute Total time spent: Total time spent is greater than 50% in coordination of care (as documented) at patient's floor/unit and/or counseling patient: (7) Hypothyroidism: Problem comment: - continue with 75 mcg once daily Status: Acute Total time spent: Total time spent is greater than 50% in coordination of care (as documented) at patient's floor/unit and/or counseling patient: Plan Had a good discussion today with the patient and her family. Given the bilateral upper extremity nature, I do think surgery is indicated for the displaced right distal radius fracture. I think we can improve the alignment and stabilize it with plate and screws. Regarding the contralateral left upper extremity, I do think nonoperative management is prudent. However, her splint is not an ideal support at this time. Thus, we will plan to treat the left distal radius fracture closed but reapplied a short-arm splint that has better fit dental loss finger range of motion. Therefore, we discussed the risks, benefits, and alternatives. I believe all questions were answered. I helped her understand the local risks (e.g. Infection, wound healing issues, nerve injury, irritation from the plate and screws) and the systemic risks (e.g. OR, VTE, stroke). She states understanding. We will plan for surgery today. She is NPO. I have communicated and coordinated care with our anesthesia team. I anticipate that she will be able to be discharged whenever she is medically stable and her nausea has resolved. I would anticipate follow-up in Orthopedic Clinic with a PA visit in approximately 10-14 days. In the meantime, finger range of motion as tolerated. Encouraged elevation at or above heart level for her wrists. Analgesics as needed.
--- NOTE | 2024-03-26 14:42 | W.ANESCHARGE ---
Anesthesia Charges Start Date/Time Anesthesia Start Date: 03/26/24 Anesthesia Start Time: 13:00 Stop Date/Time Anesthesia Stop Date: 03/26/24 Anesthesia Stop Time: 14:37 Summary Extremes of Age - Over 70 or under 1: SMOKING PIPE LINER Coding CPT Codes CPT Codes: ANESTH LOWER ARM SURGERY - 55080 ([id number]) P2 - PATIENT W/MILD SYST DISEASE, QK - LONG DISTANCE OPERATOR 2-4 CNCRNT ANES PROC, QX - SMOKING PIPE LINER SVC W/ MD MED DIRECTION Additional Codes: Summary - Extremes of Age - Over 70 or under 1: SMOKING PIPE LINER ([id number])
[2024-03-26] MEDS: LACTATED RINGERS 1000 ML 1,000 ML 75 ML IV (14:50)
--- NOTE | 2024-03-26 15:29 | PC.NURSE ---
End of Shift: Patient pleasant and cooperative, A&O. VSS, afebrile. SpO2 maintained above 90% on RA. Patient reports pain in her wrists this shift, declined PRN medication, managed with scheduled medication. Dressings on bilateral wrists C/D/I. SBA.
[2024-03-26] MEDS: SENNOSIDES 1 TAB TABLET 2 TAB PO (20:53)
[2024-03-27] MEDS: ACETAMINOPHEN 500 MG TABLET 1000 MG PO ×2 (01:20→08:58)
[2024-03-27] MEDS: LACTATED RINGERS 1000 ML 1,000 ML 75 ML IV (01:35)
[2024-03-27 03:00] VITALS: BP 151/79; PULSE 62; RESP 16; TEMP 36.6; O2SAT 97
[2024-03-27] MEDS: HYDROCODONE-ACETAMIN 5-325 MG 1 TAB 0.5 TAB PO (04:07)
[2024-03-27] MEDS: ONDANSETRON ODT 4 MG TAB PO (04:07)
[2024-03-27] MEDS: LEVOTHYROXINE 75 MCG TABLET PO (05:51)
[2024-03-27 06:35] LABS: Basophils Percent Auto 0.4 % (0.0-3.0); Eosinophils Percent Auto 2.5 % (0.0-7.0); Hematocrit 35.3 % (33.0-51.0); Hemoglobin* 12.2 gm/dL (12.0-16.0); Immature Granulocytes Pct Auto 0.2 %; Lymphocytes Percent Auto 11.7 % (20-44); Mean Corpuscular HGB Conc 35 gm/dL (32-36); Mean Corpuscular Hemoglobin 31 pg (26-34); Mean Corpuscular Volume 90 fL (80-100); Monocytes Percent Auto 8.8 % (0.0-11.0); Neutrophils Percent Auto 76.4 % (42.0-72.0); Platelet Count* 148 K/uL (140-440); Red Blood Count 3.91 m/uL (4.00-5.20); White Blood Count* 4.45 K/uL (4.50-11.00)
[2024-03-27 06:39] LABS: Slide Review Reflex No
[2024-03-27 06:50] LABS: Chloride* 103 mmol/L (96-114); Sodium* 133 mmol/L (135-149)
[2024-03-27 06:51] LABS: Potassium* 3.6 mmol/L (3.6-5.1)
[2024-03-27 06:53] LABS: Creatinine* 0.6 mg/dL (0.5-1.5); Est. Creatinine Clearance* 33.24; Estimated Glomerular Filt Rate 89 ml/min
--- NOTE | 2024-03-27 06:53 | PC.NURSE ---
End of shift note [id number]: Pt has been A&Ox4 and able to make needs known. She is transferring with SBA using gait belt. Scheduled Tylenol and ice provided for pain control of R arm along with elevation and repositioning. Pt continent of bladder with strong odor noted and po fluids encouraged. Pt tolerating regular diet. CMS to bilateral upper extremities noted to be intact. Pt reported numbness to fingers of R arm at start of shift due to block used during surgery though reports numbness has since been wearing off. PRN Zofran administered with PRN [place] to prevent possible nausea when taking narcotic medication. Pt also took with crackers to reduce possible gastric distress.?She denied nausea afterward when asked with no vomiting noted. Sling worn to RUE. Bed alarm on, call light within reach.
[2024-03-27 06:54] LABS: Anion Gap 9 mEq/L (7-15); Blood Urea Nitrogen* 9 mg/dL (7-30); Carbon Dioxide* 21 mmol/L (20-32); Glucose* 90 mg/dL (60-115)
[2024-03-27 07:38] VITALS: BP 149/92; PULSE 63; RESP 18; TEMP 36.6; O2SAT 94
[2024-03-27 07:40] VITALS: RESP 18; O2SAT 94
[2024-03-27] MEDS: IBUPROFEN 400 MG TABLET PO (08:58)
[2024-03-27] MEDS: SENNOSIDES 1 TAB TABLET 2 TAB PO (08:58)
[2024-03-27] MEDS: SODIUM CHLORIDE 0.9 % (FLUSH) 10 ML SYRINGE 5 ML IVF (08:58)
--- NOTE | 2024-03-27 09:51 | NUTR.NU ---
RDN with MD consult for post-concussion nausea and vomiting. Patient admitted to for wrist fractures, pod 1 right wrist surgery. Current weight 108 lbs; height 5ft 6in; BMI 17.6 kg/m2. Weight has been stable for the last few years. Current diet is Regular. Meal intakes at 100% x2. RDn visited with patient and family whom reported her nausea and vomiting has been resolved. She thinks the nausea and vomiting was related to pain medication. She is tolerating a regular diet with no issues. RDN did provide handout related to nausea and vomiting and included RDN's contact information. No interventions at this time. Plan is for patient to discharge home today.
--- NOTE | 2024-03-27 10:55 | PM.DS1 ---
DS: Providers Provider Date Seen: 03/27/24 Date of admission: 03/26/24 09:00 Primary care physician: Corina Rangel MD Admitting Clinician: Balwinder Vargas MD Consults: OT, PT, SW, Orthopedic Surgery Attending Physician on discharge: Lexi Esparza MD Date of Discharge: 03/27/24 DS: Diagnosis Discharge Diagnosis (1) Closed fracture of both wrists: Status: Acute Problem details: - status post fall from standing state on 03/24/2024 - R wrist s/p R distal radius ORIF with Dr. Lopez 03/26/24 - L wrist did not require surgery, splinted ? - home with family 03/27/24, close Ortho f/u (2) Nausea: Status: Acute Problem details: - in association with post-concussive headache, status post fall on 03/24/2024 from falling state - possibly iatrogenic as well (Oxycodone); has done better with Hydrocodone in the past - postoperatively, symptoms controlled with po intake and prn Zofran (3) Headache: Status: Acute Problem details: - Post concussion 03/24/2024, fall from standing state - may have component of caffeine headache, RESOLVED 03/27/24 (4) Dizziness: Status: Acute Problem details: - combination of orthostasis, dehydration, post-concussive syndrome - continue to monitor symptoms, RESOLVED 03/27/24 (5) Post-concussion syndrome: Status: Acute Problem details: - status post fall from standing state on 03/24/2024 (6) Closed fracture nasal bone: Status: Acute Problem details: - status post fall from standing state on 03/24/2024 (7) Hypothyroidism: Status: Acute Problem details: - continue with 75 mcg once daily DS: Summary Hospital Course Hospital Course: Angela is a delightful 83-year-old female who was admitted to the hospital on 03/25/2024 for nausea, headache, and dizziness in the setting of bilateral wrist fractures and nasal fracture. She had a mechanical fall on 03/24/2024, seen in the ER at that time and diagnosed with the above fractures. She was discharged home with oxycodone but re-presented to hospital a day later with nausea, dizziness, headache. There was concern that this was either post concussive or iatrogenic from oxycodone. During stay, symptoms resolved. She was seen by Orthopedic surgery for her wrist fractures; R wrist s/p ORIF with Dr. Lopez of Orthopedic surgery on 03/26/2024. Postoperatively, did well and was medically appropriate for d/c home with family support on 03/27/24. Comorbidities remained stable, no changes to home medications. Status at Discharge Functional status at discharge: independent ambulation Overall status at discharge: patient is progressing back to baseline Time Spent with Patient Time attestation: Total time spent providing and/or coordinating discharge services: Time spent: Greater than 30 minutes Specific discharge activities: Multidisciplinary team discussion/discharge planning, appts, medication reconciliation Exam Narrative: Exam Narrative: GEN: Alert and oriented, sitting comfortably in bedside chair HEENT: Normal external ears, EOMIs bilaterally, no scleral icterus CV: RRR, No concerning murmurs R: LCTA bilaterally without concerning wheezing Ext: Right upper extremity in a sling, left upper extremity splinted. Normal sensation and capillary refill of fingers bilaterally Skin: No concerning skin lesions or rashes on exposed skin Neuro: Nonfocal Psych: Appropriate Const: Vital Signs, click to edit/add: Vital Signs - 24 hr 03/26/24 11:14 03/26/24 12:29 03/26/24 12:40 Temperature 97.5 F L Pulse Rate 71 58 L Pulse Rate [Left P ulse Oximeter] 62 Respiratory Rate 18 18 18 Blood Pressure 165/95 H 132/83 Blood Pressure [Le ft Arm] 141/83 H Pulse Oximetry 98 98 99 Oxygen Delivery Me thod Room Air Nasal Cannula Nasal Cannula Oxygen Flow Rate 2 2 03/26/24 14:35 03/26/24 14:35 03/26/24 14:45 Temperature 97.4 F L 97.4 F L 97.6 F Pulse Rate 66 66 57 L Pulse Rate [Left P ulse Oximeter] Respiratory Rate 14 14 16 Blood Pressure 143/85 H 143/85 H 156/88 H Blood Pressure [Le ft Arm] Pulse Oximetry 96 96 96 Oxygen Delivery Me thod Room Air Room Air Room Air Oxygen Flow Rate 03/26/24 15:00 03/26/24 15:00 03/26/24 15:00 Temperature 98.1 F Pulse Rate 65 Pulse Rate [Left P ulse Oximeter] Respiratory Rate 14 16 16 Blood Pressure 157/90 H Blood Pressure [Le ft Arm] Pulse Oximetry 96 96 96 Oxygen Delivery Me thod Room Air Room Air Room Air Oxygen Flow Rate 03/26/24 15:00 03/26/24 15:15 03/26/24 19:33 Temperature 98.1 F 97.9 F Pulse Rate 65 Pulse Rate [Left P ulse Oximeter] 78 68 Respiratory Rate 18 14 18 Blood Pressure 159/89 H Blood Pressure [Le ft Arm] 135/79 Pulse Oximetry 96 97 Oxygen Delivery Me od Room Air Room Air Oxygen Flow Rate 03/26/24 19:34 03/26/24 20:49 03/26/24 22:48 Temperature 97.9 F 97.9 F Pulse Rate 68 68 Pulse Rate [Left P ulse Oximeter] Respiratory Rate 18 16 16 Blood Pressure 135/79 122/70 Blood Pressure [Le ft Arm] Pulse Oximetry 97 96 95 [facility] Room [facility] Room Air Oxygen Flow Rate 03/26/24 23:00 03/26/24 23:00 03/27/24 03:00 Temperature 98.3 F 97.9 F Pulse Rate Pulse Rate [Left P ulse Oximeter] 64 64 62 Respiratory Rate 16 16 16 Blood Pressure Blood Pressure [Le ft Arm] 133/75 151/79 H Pulse Oximetry 95 97 [facility] Room Air Oxygen Flow Rate 03/27/24 07:38 03/27/24 07:40 Temperature 97.8 F Pulse Rate Pulse Rate [Left P ulse Oximeter] 63 Respiratory Rate 18 18 Blood Pressure Blood Pressure [Le ft Arm] 149/92 H Pulse Oximetry 94 94 [facility]xygen [facility] Room Air Oxygen Flow Rate 0 DS: Data Data Completed and Pending Labs on day of discharge: Labs from last 24 hours 03/27/24 06:19 WBC 4.45 L RBC 3.91 L Hgb 12.2 Hct 35.3 MCV 90 MCH 31 MCHC 35 RDW Coeff of Shantanu 12.0 Plt Count 148 Neut % (Auto) 76.4 H Lymph % (Auto) 11.7 L [place] % (Auto) 8.8 Eos % (Auto) 2.5 Baso % (Auto) 0.4 Neut # (Auto) 3.40 Lymph # (Auto) 0.50 L [place] # (Auto) 0.40 Eos # (Auto) 0.10 Baso # (Auto) 0.00 Abs Immat Gran (auto) 0.00 Imm/Tot Granulo (auto) 0.2 Sodium 133 L Potassium 3.6 Chloride 103 Carbon Dioxide 21 Anion Gap 9 BUN 9 Creatinine 0.6 Estimated Creat Clear 33.24 Estimated GFR 89 Glucose 90 Calcium 8.0 L Discharge Plan Discharge Disposition: Home, Self-Care Date of Admission: 03/26/24 09:00 Attending Provider on Discharge: Lexi Esparza Consulting Providers: Daniel Lopez Primary Care Provider: Corina Rangel Condition: Improved Anticipated Discharge Date/Time: 03/27/24 09:51 Discharge Medications: New hydrocodone-acetaminophen 5-325 mg Tablet 0.5 tab PO Q4H PRNQty: 10 0RF acetaminophen [Tylenol] 325 mg tablet 975 mg PO Q6H PRNQty: 30 0RF ondansetron 4 mg tablet,disintegrating 4 mg PO Q6H PRN (Reason: nausea and vomiting) Qty: 10 0RF Continued levothyroxine 75 mcg tablet 75 mcg PO DAILY calcium carbonate-vitamin D3 [Calcium 600 + D(3)] 600 mg-10 mcg (400 unit) tablet 1 tab PO BID Discharge Orders: Discharge Order (Routine); Ordered 03/27/24 Ordered By: Lexi Esparza Patient Education: Acetaminophen (By mouth), Hydrocodone/Acetaminophen (By mouth), Ondansetron (By mouth) (Batool Renae Zuplenz), ORIF of a Wrist Fracture (DC) Activity Level: Activity as Tolerated Discharge Diet: Regular Follow Up Appointments: Checo García PA-C [Physician Wood Inspector] - 04/03/24 9:30 am ([facility] for suture removal, and follow-up.) Corina Rangel MD [Primary Care Provider] - Forms: [employer] Info Instructions
--- NOTE | 2024-03-27 11:35 | PC.SOCIAL ---
Discharge planning: loft worker head met with pt and her family several times this morning. loft worker head provided pt and her family with a list of [employer] Care agencies. Pt is interested in hiring a care transitions nurse to assist her with taking showers once a day. Pt will being doing outpatient occupational therapy. Pt does not qualify for home health care through Medicare because she does not have a retirement or physical therapy need. This was explained to the pt and her family at length this morning. Pt will have help at home from her and is also looking into hiring someone to do house cleaning, laundry, running errands, etc., all are services that the family can pay for privately with a home fire alarm installer care agency. Pt and her family are aware of how to get a hold of the social work department if they should have any further questions arise. Social work to follow-up as needed.
[2024-03-27 12:33] VITALS: BP 129/68; PULSE 62; RESP 16; TEMP 36.3; O2SAT 100
--- NOTE | 2024-03-27 15:34 | PC.NURSE ---
Pt alert and oriented. Pt had complaints of pain ranging 2-3; scheduled medications given. BUE wrapped in lino wraps; right UE also has a sling. Pt is up with gait belt and assist of one. Pt's family at bedside. OT did a shower with Pt before discharge. Pt's IV removed catheter intact. Pt's VS WNL. Pt discharged home with spouse and daughter.
== END 2024-03-27 13:41 | disposition home or self-care (01) | DRG 511 ==
LOC: ED 15:03 → MEDSURG 15:32
PROVIDERS: Family Medicine; Orthopaedic Surgery Sports Medicine; Admitting Provider Internal Medicine; Emergency Provider Emergency Medicine; PCP Family Medicine; Visit Provider Internal Medicine
PROC: 0PSH04Z Reposition Right Radius with Internal Fixation Device, Open Approach (ICD-10-PCS; CPT 25575; principal; 2024-03-26 11:45)
PROC: 0PSH04Z Reposition Right Radius with Internal Fixation Device, Open Approach (ICD-10-PCS; 2024-03-26 11:45)
DX: S52.571A Other intraarticular fracture of lower end of right radius, initial encounter for closed fracture (principal); S52.552A Other extraarticular fracture of lower end of left radius, initial encounter for closed fracture; Z68.1 Body mass index [BMI] 19.9 or less, adult; S02.2XXA Fracture of nasal bones, initial encounter for closed fracture; G44.319 Acute post-traumatic headache, not intractable; F07.81 Postconcussional syndrome; G44.40 Drug-induced headache, not elsewhere classified, not intractable; T40.2X5A Adverse effect of other opioids, initial encounter; G89.18 Other acute postprocedural pain; E86.0 Dehydration; R42 Dizziness and giddiness; R11.2 Nausea with vomiting, unspecified; N18.31 Chronic kidney disease, stage 3a; M85.80 Other specified disorders of bone density and structure, unspecified site; E04.1 Nontoxic single thyroid nodule; E03.9 Hypothyroidism, unspecified
CPT/HCPCS: 01830; 29125; 36415; 64415; 70450; 70486; 73090; 73100; 73110; 76000; 76942; 80048; 84132; 85018; 85025; 93005; 96372; 97112; 97116; 97161; 97166; 97530; 97535; 99100; 99283; 99284; 99285; A9270; C1713; G0378; J0690; J1885; J2250; J2270; J2405; J2704; J2795; J3010; J3480; J7030; J7120

== ENCOUNTER 2024-03-29 14:38 | Emergency (ER) | payer MEDICARE, SELFPAY ==
--- OUTSIDE RECORDS SUMMARY | 2024-03-29 14:41 | XMS_ITS | Clinical Summary ---
Author Organization [facility] [facility] Address [place], [place] [address] Care Team Providers Care Clinical Technologist Name Role Phone Sukumar Fernandez Shyam Unavailable [phone] Corina Rangel MD Primary Care Provider [...] Encounters Date Type Department Care Team Description 03/29/2024 Nurse Triage [facility] [address] [place] [address] Corina Rangel MD Post-op 03/26/2024 Orders Only [facility] Scanner 1 scan: (1-Ord) [place], XR WRIST RT 2V, 03/26/2024 03/25/2024 Orders Only [facility] Scanner 1 scan: (1-Ord) [facility], HEAD/BRAIN WO CONTRAST, 03/25/2024 03/25/2024 Nurse Triage [facility] [address] [place] [address] Corina Rangel MD Head Injury 03/25/2024 Telephone [facility] [address] [place] [address] Corina Rangel MD Follow Up (medication consult) 03/24/2024 Orders Only [facility] Scanner 1 scan: (1-Ord) [facility], XR WRIST LEFT, 03/24/2024 03/24/2024 Orders Only [facility] Scanner 1 scan: (1-Ord) [facility], XR WRIST RIGHT MIN 3V, 03/24/2024 03/24/2024 Orders Only [facility] Scanner 1 scan: (1-Ord) [facility], XR FOREARM LEFT, 03/24/2024 03/24/2024 Orders Only [facility] Scanner 1 scan: (1-Ord) [facility] ED, CT FACIAL BONES WO CONTRAST, 03/24/2024 02/28/2024 2:30 PM IMMERSION METALCLEANER Office Visit [facility] [address] [place] [address] Emperatriz Ayala, [facility] Consultants Visit 02/28/2024 Travel 02/25/2024 Travel 02/05/2024 8:30 AM IMMERSION METALCLEANER Ancillary Procedure [facility] [address] [facility] [address] 02/05/2024 Travel 02/01/2024 Travel 01/30/2024 10:00 AM IMMERSION METALCLEANER Office Visit [facility] [address] [facility] [place] [address] Barry Mckeon, DPFrancisca Consult (Bilateral foot pain) 01/30/2024 Travel 01/26/2024 Travel 12/31/2023 1:00 PM IMMERSION METALCLEANER Ancillary Procedure [facility] [address] [facility] [address] 12/31/2023 Travel from Last 3 Months Immunizations Name [...] dx in early 80 's, age 88 [place] Cancer-colon Mother age 75, d at 89 [...] on file Legal Sex Female 7:10 AM IMMERSION METALCLEANER Gender Identity Not on file Sexual Orientation [...] AM CDT Pulse 75 01/30/2024 9:59 AM IMMERSION METALCLEANER Temperature 36.8 C (98.2 F) 05/17/2020 1:40 PM CDT Respiratory Rate 18 03/09/2022 1:02 PM IMMERSION METALCLEANER Oxygen Saturation 98% 01/30/2024 9:59 AM IMMERSION METALCLEANER Inhaled Oxygen Concentration - - Weight 48.5 kg (107 lb) 01/30/2024 9:59 AM IMMERSION METALCLEANER Height 167 cm (5' 5.75) 12/27/2023 7:56 AM CDT Body Mass Index 17.4 12/27/2023 7:56 AM CDT Plan of Treatment Upcoming Encounters Date Type Department Care Team (Late st Contact Info) Description 04/21/2024 2:30 PM IMMERSION METALCLEANER Office Visit [facility] [address] [place] [phone] Terra Lange, PhD, LP [address] [place] [address] Health Maintenance Due Date Last Done Comments [...] Procedure Name Priority Date/Time Associated Diagnosis Comments SCAN-RADIOLOGY REPORT 03/26/2024 12:00 AM IMMERSION METALCLEANER SCAN-CT INTERPRETATION 12:00 AM IMMERSION METALCLEANER SCAN-RADIOLOGY REPORT 03/24/2024 12:00 AM IMMERSION METALCLEANER SCAN-RADIOLOGY REPORT 03/24/2024 12:00 AM IMMERSION METALCLEANER SCAN-RADIOLOGY REPORT 03/24/2024 12:00 AM IMMERSION METALCLEANER SCAN-CT INTERPRETATION 12:00 AM IMMERSION METALCLEANER XR DXA BONE DENSITY 2 SITES AXIAL AND 1 SITE PERIPHERAL Routine 02/05/2024 9:01 AM IMMERSION METALCLEANER Menopause XR CHEST 2 VIEWS PA AND LATERAL Routine 12/31/2023 1:05 PM IMMERSION METALCLEANER Intermittent right-sided chest pain from Last 3 Months Results * SCAN-RADIOLOGY REPORT (03/26/2024 12:00 AM IMMERSION METALCLEANER) Only the most recent of4 resultswithin the time period is included. Anatomical Region Laterality Modality Other us Scanner OTHER Final Result * SCAN-CT INTERPRETATION (03/25/2024 12:00 AM IMMERSION METALCLEANER) Only the most recent of2 resultswithin the time period is included. Anatomical Region Laterality Modality Other us Scanner OTHER Final Result * (ABNORMAL) XR DXA BONE DENSITY 2 SITES AXIAL AND 1 SITE PERIPHERAL (02/05/2024 9:01 AM IMMERSION METALCLEANER) Anatomical Region Laterality Modality LUMBAR SPINE Other Impressions 02/06/2024 11:21 AM IMMERSION METALCLEANER Osteoporosis. Due to the stability of the [...] from bisphosphonates if indicated. Hyacinth Mcdaniels PA-C [facility] 02/06/2024 Narrative 02/06/2024 11:21 AM IMMERSION METALCLEANER For Patients: Results are automatically released to your [employer]) account once available, in compliance with federal regulations. This means that you may see your results before your provider has had a chance to review them. Please allow 2-3 business days for your provider to comment on the results. XR DXA Bone Mineral Density (BMD) EXAM LOCATION: [address] [address] PATIENT NAME: Angela Zapata DATE OF : [...] two scanners are made by the same technology education instructor. PROCEDURE: Dual-energy x-ray absorptiometry performed with routine [...] Osteoporosis: T-score at or below -2.5 SD Corina Rangel MD DEXA Final R esult * XR CHEST 2 VIEWS PA AND LATERAL (12/31/2023 1:05 PM IMMERSION METALCLEANER) Anatomical Region Laterality Modality CHEST, THORAX, Lung, HEART Compu edison Radiography 12/31/2023 6:0 9 PM IMMERSION METALCLEANER Impressions 12/31/2023 6:09 PM IMMERSION METALCLEANER 1. Bilateral pulmonary hyperinflation and lucency is noted. This is suggestive of severe, stable pulmonary emphysema. Dictated by Boubacar Albrecht MD @ 12/31/2023 6:09:34 PM Dictated by: Boubacar Albrecht MD @ 12/31/2023 18:09:39 (Electronically Signed) Narrative 12/31/2023 6:09 PM IMMERSION METALCLEANER For Patients: As a result of the [...] Albrecht MD @ 12/31/2023 18:09:39 (Electronically Signed) us Corina Rangel MD GENERAL IMAGING Final R esult from Last 3 Months Insurance MEDICARE PB ONLY AAR PB ONLY Advance Directives Documents on File Type Date Recorded Patient Inventory Clerk Expl anation Healthcare Directive 10/19/2016 2:28 PM [facility], 07/20/2011 Care Teams Clinical Technologist Relationship Specialty Start Date End Date Corina Rangel MD [address] [place] [id number] PCP - General Family Practice 06/19/12 Sukumar Fernandez [address] [place] [address] Ophthalmology Cemetery Manager 09/01/11
--- OUTSIDE RECORDS SUMMARY | 2024-03-29 14:41 | XMS_ITS | Continuity of Care Document ---
Author Organization [facility] Address [address] [address] [place] [address] Phone Care Team Providers Care Silver Recovery Operator Name Role Phone Sonya Singh MD Unavailable [...] Diagnoses Date Provider Providers Copied on Encounter [facility], [address] [address], [place], [place], [id number], [place] tel:[phone] Wili [facility] Family Hx GI Tract CancerColon Cancer Screening Francisco Hassan. [address] [facility] [address], [place], [place], [id number], [place]. tel:[phone] Referring Provider: Analisa Martinez MD L, [address] [place], [address]. tel:[phone] Family History Family Member Type Diagnosis Age At Onset No Information Payers Payer name Insurance type Covered constitution party ID Authorabdoulaye coello(s) Preferred One Com [facility] Plan [id number] Social History Type Description Quantity Date Captured [...]
[2024-03-29 14:47] VITALS: BP 162/78; PULSE 69; RESP 18; TEMP 36.6; O2SAT 98; BMI 17.4
--- NOTE | 2024-03-29 15:12 | ED_ITS ---
HPI - General Adult General Chief complaint: Post Op Complication Stated complaint: Fingers are blue and tingly post surgery Weds. Time Seen by Provider: 03/29/24 14:52 Source: patient and family Mode of arrival: ambulatory Limitations: no limitations History of Present Illness HPI narrative: 83-year-old female presenting today with concerns about postoperative complications. The patient fell last week and suffered bilateral wrist fractures. She had an ORIF of the right wrist done on the . Left wrist was splinted did not require surgery. She noticed that in the last 24 hours that the thumb, Second and 3rd digits have turned purple. She denies pain. She denies difficulty moving her fingers. She denies significant pain of the rest of the arm or the surgical site. She has been getting by with 1 daily dose of hydrocodone and 1 daily dose of Tylenol. Related Data Home Medications ?Medication ?Instructions ?Recorded ?Confirmed levothyroxine 75 mcg tablet 75 mcg PO DAILY 06/15/22 03/25/24 calcium 600 mg (as 1 tab PO BID 03/25/24 03/25/24 carbonate)-vitamin D3 10 mcg (400 unit) tablet (Calcium 600 + D(3)) Previous Rx's ?Medication ?Instructions ?Recorded acetaminophen 325 mg tablet 975 mg (3 x 325 mg) PO Q6H PRN #30 03/27/24 (Tylenol) tabs hydrocodone 5 mg-acetaminophen 325 0.5 tab PO Q4H PRN #10 tabs 03/27/24 mg tablet ondansetron 4 mg disintegrating 4 mg PO Q6H PRN nausea and 03/27/24 tablet vomiting #10 tabs Allergies Allergy/AdvReac Type Severity Reaction Status Date / Time Latex, Natural Rubber Allergy Unknown Verified 03/24/24 17:24 Sulfa (Sulfonamide Allergy Unknown Verified 03/24/24 17:24 Antibiotics) nickel Allergy Verified 03/25/24 15:51 Review of Systems Status of ROS: Reports: 6 or more systems reviewed and unremarkable except as noted in History and below [facility] Medical History Thyroid nodule ?E04.1 - Nontoxic single thyroid nodule (ICD-10) Rectal bleeding ?K62.5 - Hemorrhage of anus and rectum (ICD-10) Stage 3a chronic kidney disease ?N18.31 - Chronic kidney disease, stage 3a (ICD-10) Closed nondisplaced fracture of distal phalanx of right middle finger ?S62.662A - Nondisplaced fracture of distal phalanx of right middle finger, initial encounter for closed fracture (ICD-10) Osteopenia ?M85.80 - Other specified disorders of bone density and structure, unspecified site (ICD-10) Adenomatous colon polyp ?D12.6 - Benign neoplasm of colon, unspecified (ICD-10) Osteoporosis ?M81.0 - Age-related osteoporosis without current pathological fracture (ICD- 10) Hypothyroidism ?E03.9 - Hypothyroidism, unspecified (ICD-10) Hip fracture, left ?S72.002A - Fracture of unspecified part of neck of left femur, initial encounter for closed fracture (ICD-10) Surgical History History of hip surgery (04/09/18) ?Z98.890 - Other specified postprocedural states (ICD-10) H/O hernia repair ?Z98.890 - Other specified postprocedural states (ICD-10) ?Z87.19 - Personal history of other diseases of the digestive system (ICD-10) Social History What is your current living situation?: I presently have a place to live Problems where you live: no known problems Problems where you live details: NA In the past 12 months, utilities in danger of being shut off: no In past 12 months, lack of transportation kept you from medical appts, meetings, work, or getting things needed for daily living: no In the past 12 mos, have been you worried that your food would run out before you had money to buy more?: never true In the past 12 mos, the food you bought just didn't last and you didn't have money to buy more?: never true Highest level of school completed/degree received: Master's degree Smoking Status: Never smoker Do you use any of these nicotine containing products: None Second hand tobacco smoke exposure: No How often do you have a drink containing alcohol: 2-4 times a month Alcohol type: beer How many standard drinks containing alcohol do you have on a typical day: 1 or 2 How often do you have six or more drinks on one occasion: Never AUDIT-C Alcohol total score: 2 Non-prescribed substance use: denies use Caffeine: Yes (coffee) How often does anyone, including family, friends and others, physically hurt you : never How often does anyone, including family, friends and others, insult or talk down to you: never How often does anyone, including family, friends and others, threaten you with harm: never How often does anyone, including family, friends and others, scream or curse at you: never service: No Exam Narrative: Exam Narrative: Well-nourished well-developed elderly patient in no acute distress. Alert and oriented. Answers questions appropriately. Mood and affect are appropriate. Thoughts are goal oriented and rational. No tangential or magical thinking noted. Patient speaks in full sentences without needing to catch her breath. She seems to be in very good spirits. HEENT: Normocephalic. Bruising to the anterior face and nose. Pupils are equally round reactive to light. Extraocular muscles are intact. Conjunctivae are moist without any icterus noted. Moist mucous membranes. Extremities: Patient is splinted bilaterally. On the right hand she has fresh ecchymosis of the fingers. The hand is swollen as expected postoperatively. Normal capillary refill. Temperature of the hands are normal and symmetric. There is no blanching of the skin, no pallor. No pain with palpation of the fingers. Skin: Well perfused. Const: Vital Signs, click to edit/add: Vital Signs - 24 hr 03/29/24 14:47 Temperature 98 F Pulse Rate [Pulse Oximeter] 69 Respiratory Rate 18 Blood Pressure [Le ft Upper Arm] 162/78 H Pulse Oximetry 98 Oxygen Delivery Me thod Room Air Course Vital Signs Vital signs: Initial Vital Signs Temperature 98 F 03/29/24 14:47 Temperature Source Temporal Artery Scan 03/29/24 14:47 Pulse Rate 69 03/29/24 14:47 Pulse Rhythm Regular 03/29/24 14:47 Respiratory Rate 18 03/29/24 14:47 Blood Pressure 162/78 H 03/29/24 14:47 Blood Pressure Mean 106 H 03/29/24 14:47 Blood Pressure Position Sitting 03/29/24 14:47 Pulse Oximetry 98 03/29/24 14:47 Oxygen Delivery Method Room Air 03/29/24 14:47 Vital Signs Temperature 98 F 03/29/24 14:47 Pulse Rate 69 03/29/24 14:47 Respiratory Rate 18 03/29/24 14:47 Blood Pressure 162/78 H 03/29/24 14:47 Pulse Oximetry 98 03/29/24 14:47 Oxygen Delivery Method Room Air 03/29/24 14:47 Temperature 98 F 03/29/24 14:47 Pulse Rate 69 03/29/24 14:47 Respiratory Rate 18 03/29/24 14:47 Blood Pressure 162/78 H 03/29/24 14:47 Pulse Oximetry 98 03/29/24 14:47 Oxygen Delivery Method Room Air 03/29/24 14:47 Medical Decision Making MDM Narrative Medical decision making narrative: 83-year-old female presenting with a very normal and expected postoperative course. Patient is reassured that ecchymosis is normal in this case. We discussed reasons for follow-up. Patient and daughter had no other questions. Discharge Plan Discharge Clinical Impression: Normal exam Patient Disposition: Home, Self-Care Condition: Stable Additional Instructions: Continue to follow-up postoperative recommendations. Prescriptions: No Action levothyroxine 75 mcg tablet 75 mcg PO DAILY calcium carbonate-vitamin D3 [Calcium 600 + D(3)] 600 mg-10 mcg (400 unit) tablet 1 tab PO BID hydrocodone-acetaminophen 5-325 mg Tablet 0.5 tab PO Q4H PRNQty: 10 0RF acetaminophen [Tylenol] 325 mg tablet 975 mg PO Q6H PRNQty: 30 0RF ondansetron 4 mg tablet,disintegrating 4 mg PO Q6H PRN (Reason: nausea and vomiting) Qty: 10 0RF Follow Up/Referrals: Corina Rangel MD [Primary Care Provider] - Stand Alone Forms: [employer] Info Instructions
--- OUTSIDE RECORDS SUMMARY | 2024-03-29 15:30 | XMS_ITS | Continuity of Care Document ---
Author Organization [facility] Address [address] [address] [place] [address] Phone Care Team Providers Care Archeology Faculty Member Name Role Phone Sonya Singh MD Unavailable [...] Diagnoses Date Provider Providers Copied on Encounter [facility], [address] [address], [place], [place], [id number], [place] tel:[phone] Wili [facility] Family Hx GI Tract CancerColon Cancer Screening Francisco Hassan. [address] [facility], [facility] [address], [place], [place], [id number], [place]. tel:[phone] Referring Provider: Analisa Martinez MD L, [address] [place], [address]. tel:[phone] Family History Family Member Type Diagnosis Age At Onset No Information Payers Payer name Insurance type Covered constitution party ID Authorabdoulaye coello(s) Preferred One Com [facility] Plan [id number] Social History Type Description Quantity Date Captured [...]
--- OUTSIDE RECORDS SUMMARY | 2024-03-29 15:30 | XMS_ITS | Clinical Summary ---
Author Organization [facility] Address [place], [place] [address] Care Team Providers Care Tower Attendant Name Role Phone Sukumar Fernandez Shyam Unavailable [phone] Corina Rangel MD Primary Care Provider [...] Department Care Team Description 03/29/2024 Nurse Triage [facility] [address] [place] [address] Corina Rangel MD Post-op 03/26/2024 Orders Only [facility] Scanner 1 scan: (1-Ord) [facility], XR WRIST RT 2V, 03/26/2024 03/25/2024 Orders Only [facility] Scanner 1 scan: (1-Ord) [facility], HEAD/BRAIN WO CONTRAST, 03/25/2024 03/25/2024 Nurse Triage [facility] [address] [place] [address] Corina Rangel MD Head Injury 03/25/2024 Telephone [facility] [address] [place] [address] Corina Rangel MD Follow Up (medication consult) 03/24/2024 Orders Only [facility] Scanner 1 scan: (1-Ord) [facility], XR WRIST LEFT, 03/24/2024 03/24/2024 Orders Only [facility] Scanner 1 scan: (1-Ord) [facility], XR WRIST RIGHT MIN 3V, 03/24/2024 03/24/2024 Orders Only [facility] Scanner 1 scan: (1-Ord) [facility], XR FOREARM LEFT, 03/24/2024 03/24/2024 Orders Only [facility] Scanner 1 scan: (1-Ord) [facility], CT FACIAL BONES WO CONTRAST, 03/24/2024 02/28/2024 2:30 PM RUBBER GOODS INSPECTOR Office Visit [facility] [address] [place] [address] Emperatriz Ayala, [facility] Visit 02/28/2024 Travel 02/25/2024 Travel 02/05/2024 8:30 AM RUBBER GOODS INSPECTOR Ancillary Procedure [facility] [address] [facility] [address] 02/05/2024 Travel 02/01/2024 Travel 01/30/2024 10:00 AM RUBBER GOODS INSPECTOR Office Visit [facility] [address] [facility] [place] [address] Barry Mckeon, DPFrancisca Consult (Bilateral foot pain) 01/30/2024 Travel 01/26/2024 Travel 12/31/2023 1:00 PM RUBBER GOODS INSPECTOR Ancillary Procedure [facility] [address] [facility] [address] 12/31/2023 Travel from Last 3 Months Immunizations [...] dx in early 80 's, age 88 [place] Cancer-colon Mother age 75, d at 89 [...] on file Legal Sex Female 7:10 AM RUBBER GOODS INSPECTOR Gender Identity Not on file Sexual Orientation [...] AM CDT Pulse 75 01/30/2024 9:59 AM RUBBER GOODS INSPECTOR Temperature 36.8 C (98.2 F) 05/17/2020 1:40 PM CDT Respiratory Rate 18 03/09/2022 1:02 PM RUBBER GOODS INSPECTOR Oxygen Saturation 98% 01/30/2024 9:59 AM RUBBER GOODS INSPECTOR Inhaled Oxygen Concentration - - Weight 48.5 kg (107 lb) 01/30/2024 9:59 AM RUBBER GOODS INSPECTOR Height 167 cm (5' 5.75) 12/27/2023 7:56 AM CDT Body Mass Index 17.4 12/27/2023 7:56 AM CDT Plan of Treatment Upcoming Encounters Date Type Department Care Team (Late st Contact Info) Description 04/21/2024 2:30 PM RUBBER GOODS INSPECTOR Office Visit [facility] [address] [place] [phone] Terra Lange, PhD, LP [address] [place] [address] Health Maintenance Due Date Last Done Comments [...] Diagnosis Comments SCAN-RADIOLOGY REPORT 03/26/2024 12:00 AM RUBBER GOODS INSPECTOR SCAN-CT INTERPRETATION 12:00 AM RUBBER GOODS INSPECTOR SCAN-RADIOLOGY REPORT 03/24/2024 12:00 AM RUBBER GOODS INSPECTOR SCAN-RADIOLOGY REPORT 03/24/2024 12:00 AM RUBBER GOODS INSPECTOR SCAN-RADIOLOGY REPORT 03/24/2024 12:00 AM RUBBER GOODS INSPECTOR SCAN-CT INTERPRETATION 12:00 AM RUBBER GOODS INSPECTOR XR DXA BONE DENSITY 2 SITES AXIAL AND 1 SITE PERIPHERAL Routine 02/05/2024 9:01 AM RUBBER GOODS INSPECTOR Menopause XR CHEST 2 VIEWS PA AND LATERAL Routine 12/31/2023 1:05 PM RUBBER GOODS INSPECTOR Intermittent right-sided chest pain from Last 3 Months Results * SCAN-RADIOLOGY REPORT (03/26/2024 12:00 AM RUBBER GOODS INSPECTOR) Only the most recent of4 resultswithin the time period is included. Anatomical Region Laterality Modality Other us Scanner OTHER Final Result * SCAN-CT INTERPRETATION (03/25/2024 12:00 AM RUBBER GOODS INSPECTOR) Only the most recent of2 resultswithin the time period is included. Anatomical Region Laterality Modality Other us Scanner OTHER Final Result * (ABNORMAL) XR DXA BONE DENSITY 2 SITES AXIAL AND 1 SITE PERIPHERAL (02/05/2024 9:01 AM RUBBER GOODS INSPECTOR) Anatomical Region Laterality Modality LUMBAR SPINE Other Impressions 02/06/2024 11:21 AM RUBBER GOODS INSPECTOR Osteoporosis. Due to the stability of the [...] from bisphosphonates if indicated. Hyacinth Mcdaniels PA-C [facility] 02/06/2024 Narrative 02/06/2024 11:21 AM RUBBER GOODS INSPECTOR For Patients: Results are automatically released to your [employer] account once available, in compliance with federal regulations. This means that you may see your results before your provider has had a chance to review them. Please allow 2-3 business days for your provider to comment on the results. XR DXA Bone Mineral Density (BMD) EXAM LOCATION: [address] [address] PATIENT NAME: Angela Zapata DATE OF : [...] two scanners are made by the same national recruiter. PROCEDURE: Dual-energy x-ray absorptiometry performed with routine [...] VIEWS PA AND LATERAL (12/31/2023 1:05 PM RUBBER GOODS INSPECTOR) Anatomical Region Laterality Modality CHEST, THORAX, Lung, HEART Compu edison Radiography 12/31/2023 6:0 9 PM RUBBER GOODS INSPECTOR Impressions 12/31/2023 6:09 PM RUBBER GOODS INSPECTOR 1. Bilateral pulmonary hyperinflation and lucency is noted. This is suggestive of severe, stable pulmonary emphysema. Dictated by Boubacar Albrecht MD @ 12/31/2023 6:09:34 PM Dictated by: Boubacar Albrecht MD @ 12/31/2023 18:09:39 (Electronically Signed) Narrative 12/31/2023 6:09 PM RUBBER GOODS INSPECTOR For Patients: As a result of the [...] Documents on File Type Date Recorded Patient Chuck Tender Expl anation Healthcare Directive 10/19/2016 2:28 PM [facility], 07/20/2011 Care Teams Tower Attendant Relationship Specialty Start Date End Date Corina Rangel MD [address] [place] [address] PCP - General Family Practice 06/19/12 Sukumar Fernandez [address] [place] [address] Ophthalmology Activities Specialist 09/01/11
== END 2024-03-29 15:35 | disposition home or self-care (01) ==
LOC: ED 15:28
PROVIDERS: Emergency Provider Family Medicine; PCP Family Medicine
DX: R23.3 Spontaneous ecchymoses (principal)
CPT/HCPCS: 99282; 99283

== ENCOUNTER 2024-05-21 08:15 | Outpatient (RCR) | payer MEDICARE, SELFPAY ==
--- NOTE | 2024-04-18 11:07 | OT.OPOE ---
OT Outpatient Ortho Eval OT Outpatient Ortho Eval* Start: 04/18/24 08:16 Freq: Status: Active Protocol: Document 04/18/24 09:08 AMB (Rec: 04/18/24 10:57 AMB [id number]) E-signed By Shonna Martinez, OTR/L, CLT, SCIENCE EDUCATION PROFESSOR OT OP Ortho Eval Details Complexity Complexity Low Insurance Information Insurance Information Medicare B Insurance Information Comments MC due 07/17/24 Outpatient History/Precautions Current Condition/Medical Diagnosis Referring Provider Checo García PA-C Medical Diagnoses Z98.890 Post op RUE wrist ORIF Treatment Diagnosis M25.631 Stiffness RUE wrist M25.631 Stiffness LUE wrist M25.541 Pain RUE wrist M25.542 Pain LUE wrist R53.1 Weakness BUE Date of Onset DOI: 03/24/24, DOS: 03/26/24 Medical Conditions Osteoporosis,Latex Allergy Other Conditions Pt states she broke her right wrist and left hand while traveling in [place] 7 years ago, states she forgot to tell the surgeon this, she has also had a left hip fx with ORIF in 2017. PMH (copied from ortho chart): H/O right wrist surgery (Acute ) 8 days postop left distal radius ORIF (date of surgery , Dr. Lopez) Z98.890 - Other specified postprocedural states (ICD-10) Closed fracture of left wrist (Acute) 10 days post closed treatment of a closed acute left distal radius, nondisplaced fracture (date of injury 03/24/2024) S62.102A - Fracture of unspecified carpal bone, left wrist, initial encounter for closed fracture (ICD-10) Normal exam (Acute) Z00.00 - Encounter for general adult medical examination without abnormal findings (ICD -10) Closed fracture of both wrists (Acute) - status post fall from standing state on 03/24/2024 - R wrist s/p R distal radius ORIF with Dr. Lopez 03/26/24 - L wrist did not require surgery, splinted - home with family 03/27/24, close Ortho f/u S62.101A - Fracture of unspecified carpal bone, right wrist, initial encounter for closed fracture (ICD-10) S62.102A - Fracture of unspecified carpal bone, left wrist, initial encounter for closed fracture (ICD-10) Medical History (Reviewed 03/22 @ 15:14 by Celsa Baig MD) Thyroid nodule E04.1 - Nontoxic single thyroid nodule (ICD-10) Rectal bleeding K62.5 - Hemorrhage of anus and rectum (ICD-10) Stage 3a chronic kidney disease N18.31 - Chronic kidney disease, stage 3a (ICD-10) Closed nondisplaced fracture of distal phalanx of right middle finger S62.662A - Nondisplaced fracture of distal phalanx of right middle finger, initial encounter for closed fracture (ICD-10) Osteopenia M85.80 - Other specified disorders of bone density and structure, unspecified site ( ICD-10) Adenomatous colon polyp D12.6 - Benign neoplasm of colon, unspecified (ICD-10) Osteoporosis M81.0 - Age-related osteoporosis without current pathological fracture (ICD-10) Hypothyroidism E03.9 - Hypothyroidism, unspecified (ICD-10) Hip fracture, left S72.002A - Fracture of unspecified part of neck of left femur, initial encounter for closed fracture (ICD-10) Surgical History (Reviewed 03/22 @ 15:14 by Celsa Baig MD) History of hip surgery () Z98.890 - Other specified postprocedural states (ICD-10) H/O hernia repair Z98.890 - Other specified postprocedural states (ICD-10) Z87.19 - Personal history of other diseases of the digestive system (ICD-10) Medical/Functional History Medical History Reviewed Yes Prior Level of Function/Mobility Prior to recent BUE wrist fx, pt had full, pain-free use of BUE Social History Employment Status [employer] Employed 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 She also fell on her face. Pt sustained a fx of her nose and BUE DR. Pt does not recall what caused her to fall. Pt underwent ORIF on the RUE on , closed reduction on the LUE. She did have a complication where she had to be seen in ER after this episode as she was retching and had a very upset stomach, states they did scan her head to r/o a brain bleed, she feels it was related to the pain meds. She also had to go to ER shortly after her casting as her fingers became severely swollen. Pt states she feels she is doing well, really only takes Tylenol and Ibuprofen occasionally for discomfort, no longer taking her pain meds. Pt pleased with the reduced swelling in her right hand and fingers, using her right hand for tatting, feels this is helping her move better. 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 Pt rates her pain 0-1 /10, not constant. Goniometric Comments Goniometric Comments Goniometric Comments AROM of BUE is WFL throughout with the exception of BUE wrists / hands. Pt is still casted on her LUE. AROM of the RUE is: Forearm: Pro/sup: 40/45 Wrist: Flex/Ext:40/40 UD/RD: 15/15 Pro/Sup: 40/45 Composite Fist:Full Opposition: Full Hand Pinch/S Iron Worker Strength Comments Comments 04/18/24 Too early for strengthening OT Objective Data Hand Hand Dominance Right Skin/Wounds/Edema Comments 04/18/24 LUE wrist is still in ortho splint, RUE in OTS wrist cock-up splint. LUE fingers mildly swollen, brisk capillary refill, no bruising visible. RUE mildly swollen hand/fingers, brisk capillary refill, incision is covered with surgical glue, no drainage, no s/s of infection. OT Problems Problems Problems Decreased Strength,Decreased Range of Motion,Decreased Dexterity,Pain,Decreased Coordination,Lifting,Gripping, Pinching Other Problems Writing,Opening Containers, Dressing,Computer,Fasteners Patient Potential Good Assessment Assessment Assessment Pt is a very pleasant 83yo referred to OT for evaluation and treatment following a fall on 03/24/[address]UE [address] bhargavi with ORIF on the RUE and closed treatment on the LUE. Pt is still in ortho splint on the LUE, will hold on treatment until cleared by ortho to initiate rehab on the LUE. RUE demonstrates mild swelling, weakness, and limited AROM. 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 Pt will benefit from skilled OT intervention to address deficits and to restore full, pain-free use of BUE. Pt is very active and motivated to improve. She has a trip to [place] scheduled in May and is hopeful that she will be able to go. Occupational Therapy Treatment Plan - OP Potential Rehabilitation Potential Good Set Goals Goals Set with Patient Yes Goals Goals 1. Pt will be independent and compliant with HEP in order to resume full, pain-free use of BUE. 3 weeks 2. 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 6 weeks 3. 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 8 weeks . Target Date 07/15/24 Treatment Plan Treatment Plan Evaluation,Edema Control,Joint Mobilization,Manual Therapy, Wound Care/Scar Management, Therapeutic Exercise, Therapeutic Activities,Self Care/Home Management,Education Expected Frequency 1-2x Week Expected Duration 8-10 Weeks Home Program Home Program Home Program Initiated Home Program Specifics 04/18/24 Provided training and practice in the following exs. Following demo, pt is able to complete all exs with her RUE with minimal cues. Pt was provided with written instructions for use at home as well. Access Code: [email or web address] URL: [email or web address] Date: 04/18/2024 Prepared by: Penny Martinez Program Notes Be gentle, if you have more pain / swelling, you may need to decrease your efforts or repetitions / sessions.? Exercises - Seated Full Fist AROM - 2-3 x daily - 7 x weekly - 10 reps - Wrist Flexion Extension AROM - 2-3 x daily - 7 x weekly - 1 sets - 10 reps - Finger Spreading - 2-3 x daily - 7 x weekly - 1 sets - 10 reps - Thumb Opposition - 2-3 x daily - 7 x weekly - 1 sets - 10 reps - Seated Wrist Radial and Ulnar Deviation AROM - 2-3 x daily - 7 x weekly - 1 sets - 10 reps - Standing Forearm Pronation and Supination AROM - 2-3 x daily - 7 x weekly - 1 sets - 10 reps Certification Certification Statement I Certify That: Therapy Services Provided, Therapy Plan Established, Therapy Plan Reviewed Certification Information Clinic ID # [id number] Initial Certification Date 04/18/24 Recertification Due Date 07/17/24 Provider Signature Required Yes Provider Signature Shows Agreement With POC & Medical Necessity Physician NPI Number Write NPI# Here Physician Comment/Change Comment or Changes Physician Signature & Date Requested Please Sign/Date Here
== END 2024-05-21 14:03 | disposition home or self-care (01) ==
PROVIDERS: PCP Family Medicine; Visit Provider Physician Assistant Surgical
DX: Z98.890 Other specified postprocedural states (principal); M25.631 Stiffness of right wrist, not elsewhere classified; M25.541 Pain in joints of right hand; M25.542 Pain in joints of left hand; R53.1 Weakness; Z51.89 Encounter for other specified aftercare
CPT/HCPCS: 97110; 97140; 97165; X5282